=== PATIENT | female | born 1945 | race Caucasian/White ===

== ENCOUNTER 2017-08-15 10:13 | Inpatient (IN) | payer MEDICARE, BC ==
[2017-08-15] MEDS ORDERED: methylPREDNISolone SOD SUCCI 125 MG/2 ML VIAL IV STA (10:18)
[2017-08-15] MEDS ORDERED: IPRATROPIUM-ALBUTEROL 3 ML NEB INHALATION STA (10:18)
[2017-08-15] MEDS ORDERED: SODIUM CHLORIDE 0.9% 1,000 ML IV STA (10:18)
--- NOTE | 2017-08-15 10:20 | ED ---
SOB HPI - General Stated Complaint: JEFF Time Seen by Provider: 08/15/17 10:13 Source: patient, EMS, RN notes reviewed Mode of arrival: EMS - History of Present Illness Initial Comments: This is a 72-year-old female history of COPD who still smokes who states she's been having difficulty breathing and coughing for the past one half weeks. She seems actually may have been gone on longer since coming back from [place] in the middle of July. She complains of no fevers chills or sweats just cough shortness of breath some chest tightness. She has any history of a sternotomy and sternotomy from E. coli infection after bypass surgery. She did present to her doctor's office who sent here by embolus. She did receive a updraft treatments and still short of breath MD Complaint: shortness of breath, cough - Related Data Home Medications Medication Instructions Recorded Confirmed Albuterol Nebulized [Ventolin 2.5 mg INHALATION RT-Q4H PRN 08/15/17 08/15/17 Nebulized] Aspirin EC [Ecotrin Low Dose] 81 mg PO BID 08/15/17 08/15/17 Carvedilol [Coreg] 12.5 mg PO BID 08/15/17 08/15/17 Cholecalciferol (Vitamin D3) 4,000 unit PO DAILY 08/15/17 08/15/17 [Vitamin D3] DULoxetine HCL [Cymbalta] 60 mg PO DAILY 08/15/17 08/15/17 Fluticasone Nasal [place] [Flonase 1 spray EA NOSTRIL DAILY 08/15/17 08/15/17 Nasal [place]] Gabapentin 600 mg PO HS 08/15/17 08/15/17 HYDROcodone/APAP 10-325MG [[place] 1 tab PO Q4HR PRN 08/15/17 08/15/17 10-325] Lisinopril [Prinivil] 10 mg PO DAILY 08/15/17 08/15/17 Multivitamins, Thera [Multivitamin 1 tab PO DAILY 08/15/17 08/15/17 (formulary)] Potassium Chloride [Klor-Con 10] 10 meq PO DAILY 08/15/17 08/15/17 Simvastatin [Zocor] 10 mg PO HS 08/15/17 08/15/17 Torsemide [Demadex] 5 mg PO DAILY 08/15/17 08/15/17 Allergies Allergy/AdvReac Type Severity Reaction Status Date / Time Penicillins Allergy Rash/Hives Verified 08/15/17 11:15 Review of Systems ROS Statement: Those systems with pertinent positive or pertinent negative responses have been documented in the HPI. ROS Other: All systems not noted in ROS Statement are negative. General Exam - General Exam Comments Initial Comments: This is a well-developed well-nourished awake alert oriented 3 female General appearance: alert, anxious, in distress Head exam: Present: atraumatic, normocephalic, normal inspection Eye exam: Present: normal appearance, PERRL, EOMI. Absent: scleral icterus, conjunctival injection, periorbital swelling ENT exam: Present: normal exam, mucous membranes moist Neck exam: Present: normal inspection. Absent: tenderness, meningismus, lymphadenopathy Respiratory exam: Present: wheezes, accessory muscle use, decreased breath sounds. Absent: respiratory distress, rales, rhonchi, stridor Cardiovascular Exam: Present: regular rate, normal rhythm, normal heart sounds. Absent: systolic murmur, diastolic murmur, rubs, gallop, clicks GI/Abdominal exam: Present: soft, normal bowel sounds. Absent: distended, tenderness, guarding, rebound, rigid Extremities exam: Present: normal inspection, full ROM, normal capillary refill. Absent: tenderness, pedal edema, joint swelling, calf tenderness Back exam: Present: normal inspection Neurological exam: Present: alert, oriented X3, CN II-XII intact Psychiatric exam: Present: normal affect, normal mood Skin exam: Present: warm, dry, intact, normal color. Absent: rash Course Vital Signs 08/15/17 08/15/17 08/15/17 10:15 10:40 10:51 Temperature 99.7 F H Pulse Rate 82 74 76 Respiratory 30 H Rate Blood Pressure 123/66 O2 Sat by Pulse 94 L Oximetry 08/15/17 08/15/17 08/15/17 10:58 11:47 12:28 Temperature 98.5 F Pulse Rate 75 75 74 Respiratory 28 H 28 H 28 H Rate Blood Pressure 112/56 117/58 105/56 O2 Sat by Pulse 94 L 95 96 Oximetry 08/15/17 13:15 Temperature Pulse Rate 71 Respiratory 16 Rate Blood Pressure 119/57 O2 Sat by Pulse 94 L Oximetry - Reevaluation(s) Reevaluation #1: 08/15/17 12:55 The patient did get some improvement in her breathing after the nebulizer treatment. Reevaluation #2: 08/15/17 12:55 Laboratories show evidence of elevated BNP the x-ray of the lung shows left sided. Medical Decision Making - Medical Decision Making I did discuss [employer] the patient family members. Patient is breathing somewhat better she does demonstrate evidence of COPD exacerbation evidence of CHF as well as a left lung mass. She will be admitted for inpatient evaluation and treatment - Lab Data Result diagrams: 08/15/17 10:26 08/15/17 10:26 Lab Results 08/15/17 08/15/17 08/15/17 Range/Units 10:26 10:26 10:26 WBC 15.3 H (3.8-10.6) k/uL RBC 3.56 L (3.80-5.40) m/uL Hgb 11.0 L (11.4-16.0) gm/dL Hct 31.6 L (34.0-46.0) % MCV 88.8 (80.0-100.0) fL MCH 30.8 (25.0-35.0) pg MCHC 34.7 (31.0-37.0) g/dL RDW 12.7 (11.5-15.5) % Plt Count 206 (150-450) k/uL Neutrophils % 89 % Lymphocytes % 5 % Monocytes % 4 % Eosinophils % 2 % Basophils % 0 % Neutrophils # 13.6 H (1.3-7.7) k/uL Lymphocytes # 0.7 L (1.0-4.8) k/uL Monocytes # 0.6 (0-1.0) k/uL Eosinophils # 0.3 (0-0.7) k/uL Basophils # 0.0 (0-0.2) k/uL PT (9.0-12.0) sec INR (<1.2) APTT (22.0-30.0) sec D-Dimer (<0.60) mg/L FEU Sodium 135 L (137-145) mmol/L Potassium 4.3 (3.5-5.1) mmol/L Chloride 105 (98-107) mmol/L Carbon Dioxide 18 L (22-30) mmol/L Anion Gap 12 mmol/L BUN 24 H (7-17) mg/dL Creatinine 1.29 H (0.52-1.04) mg/dL Est GFR (CKD-EPI)AfAm 48 (>60 ml/min/1.73 sqM) Est GFR (CKD-EPI)NonAf 42 (>60 ml/min/1.73 sqM) Glucose 114 H (74-99) mg/dL Calcium 7.8 L (8.4-10.2) mg/dL Total Bilirubin 1.2 (0.2-1.3) mg/dL AST 17 (14-36) U/L ALT 27 (9-52) U/L Alkaline Phosphatase 90 (38-126) U/L Total Creatine Kinase 71 (30-135) U/L CK-MB (CK-2) 0.6 (0.0-2.4) ng/mL CK-MB (CK-2) Rel Index 0.8 Troponin I 0.013 (0.000-0.034) ng/mL NT-Pro-B Natriuret Pep pg/mL Total Protein 5.0 L (6.3-8.2) g/dL Albumin 2.7 L (3.5-5.0) g/dL 08/15/17 08/15/17 Range/Units 10:26 10:26 WBC (3.8-10.6) k/uL RBC (3.80-5.40) m/uL Hgb (11.4-16.0) gm/dL Hct (34.0-46.0) % MCV (80.0-100.0) fL MCH (25.0-35.0) pg MCHC (31.0-37.0) g/dL RDW (11.5-15.5) % Plt Count (150-450) k/uL Neutrophils % % Lymphocytes % % Monocytes % % Eosinophils % % Basophils % % Neutrophils # (1.3-7.7) k/uL Lymphocytes # (1.0-4.8) k/uL Monocytes # (0-1.0) k/uL Eosinophils # (0-0.7) k/uL Basophils # (0-0.2) k/uL PT 9.9 (9.0-12.0) sec INR 1.0 (<1.2) APTT 23.7 (22.0-30.0) sec D-Dimer 4.21 H (<0.60) mg/L FEU Sodium (137-145) mmol/L Potassium (3.5-5.1) mmol/L Chloride (98-107) mmol/L Carbon Dioxide (22-30) mmol/L Anion Gap mmol/L BUN (7-17) mg/dL Creatinine (0.52-1.04) mg/dL Est GFR (CKD-EPI)AfAm (>60 ml/min/1.73 sqM) Est GFR (CKD-EPI)NonAf (>60 ml/min/1.73 sqM) Glucose (74-99) mg/dL Calcium (8.4-10.2) mg/dL Total Bilirubin (0.2-1.3) mg/dL AST (14-36) U/L ALT (9-52) U/L Alkaline Phosphatase (38-126) U/L Total Creatine Kinase (30-135) U/L CK-MB (CK-2) (0.0-2.4) ng/mL CK-MB (CK-2) Rel Index Troponin I (0.000-0.034) ng/mL NT-Pro-B Natriuret Pep 4300 pg/mL Total Protein (6.3-8.2) g/dL Albumin (3.5-5.0) g/dL - EKG Data -: EKG Interpreted by Me EKG shows normal: sinus rhythm (Sinus rhythm rate is 72. Interval 178 QRS duration 84 QT since QTC 420/459 nonspecific inferior changes nonspecific ST-T wave configuration) - Radiology Data Radiology results: report reviewed (I did review the imaging and report evidence of a left perihilar mass consistent with neoplasm. Please see the report for complete details), image reviewed Critical Care Time Critical Care Time: Yes Critical Care Time: 39 minutes of critical care time which includes initial monitoring the EMS run and discussed with paramedics history physical labs x-rays several reevaluation the patient. Discussed with the patient family regarding findings discussion with the admitting physician discussion with the consult. Admission orders and documentation of the above Disposition Clinical Impression: Acute exacerbation of chronic obstructive airways disease, Adult respiratory distress syndrome, Congestive heart failure, Lung mass, Renal insufficiency Disposition: ADMITTED IP TO THIS HOSP Condition: Serious Referrals: Byron Benites MD [Primary Care Provider] - 1-2 days
[2017-08-15 10:38] LABS: Basophils % (A) 0 %; Eosinophils # (A) 0.3 k/uL (0-0.7); Eosinophils % (A) 2 %; HCT 31.6 % (34.0-46.0); Lymphocytes # (A) 0.7 k/uL (1.0-4.8); Lymphocytes % (A) 5 %; MCH 30.8 pg (25.0-35.0); MCHC 34.7 g/dL (31.0-37.0); MCV 88.8 fL (80.0-100.0); Mean Platelet Volume 8.5; Monocytes # (A) 0.6 k/uL (0-1.0); Monocytes % (A) 4 %; Neutrophils # (A) 13.6 k/uL (1.3-7.7); Neutrophils % (A) 89 %; Platelet Count 206 k/uL (150-450); RBC 3.56 m/uL (3.80-5.40); RDW 12.7 % (11.5-15.5); WBC 15.3 k/uL (3.8-10.6)
--- NOTE | 2017-08-15 10:46 | XR ---
EXAMINATION TYPE: XR chest 2V DATE OF EXAM: 08/15/2017 COMPARISON: NONE HISTORY: History of COPD, CABG, CVA, and NV presents with shortness of breath and weakness. TECHNIQUE: Frontal and lateral views of the chest are obtained. FINDINGS: Patient is rotated to left making evaluation slightly suboptimal. There is completely opac ified left hemithorax. There are surgical clips near level of left aortic knob. There is background c hronic emphysematous change suspected in the right lung.. The left heart border is silhouetted due t o left lung opacification. The osseous structures are intact. Cholecystectomy clips are noted. IMPRESSION: Completely opacified left hemithorax may reflect product of prior surgery or total pneum onectomy, correlate clinically. Underlying infiltrates need to be considered if there is no such hist ory. No definitive left-sided volume loss. Comparison with old outside chest x-ray would be adalida l.
[2017-08-15] MEDS ORDERED: LORazepam 2 MG/ML INJ IV STA (10:55)
[2017-08-15 10:58] LABS: Partial Thromboplastin Time 23.7 sec (22.0-30.0); Prothrombin Time 9.9 sec (9.0-12.0)
[2017-08-15 10:59] LABS: D-Dimer 4.21 mg/L FEU (<0.60)
[2017-08-15 11:00] LABS: Albumin 2.7 g/dL (3.5-5.0); Calcium 7.8 mg/dL (8.4-10.2); Potassium 4.3 mmol/L (3.5-5.1); Total Bilirubin 1.2 mg/dL (0.2-1.3)
[2017-08-15] MEDS ORDERED: SODIUM CHLORIDE 0.9% 500 ML IV STA (11:05)
[2017-08-15 11:18] LABS: Creatine Kinase MB 0.6 ng/mL (0.0-2.4); Troponin I 0.013 ng/mL (0.000-0.034)
--- NOTE | 2017-08-15 12:10 | CT ---
EXAMINATION TYPE: CT angio chest DATE OF EXAM: 08/15/2017 COMPARISON: Same day chest x-ray HISTORY: Chest pain, cough and shortness of breath. CT DLP: 497 mGycm. Automated Exposure Control for Dose Reduction was Utilized. CONTRAST: CTA scan of the thorax is performed with IV Contrast, patient injected with 75 mL of Isovue 370, pulm onary embolism protocol. MIP Images are created on CT scanner and reviewed. FINDINGS: LUNGS: There is background moderate to severe underlying emphysematous change there is complete opaci fication or suspected lobar atelectasis of the lingula and left upper lobe. There is abrupt narrowing of left upper lobe bronchus and occlusion of the lingular bronchus axial image 58 noted. There is sm all to tiny left pleural effusion with associated compressive atelectasis. There is dependent atelectasis in the right lung base. There is subcentimeter nodularity axial image 80 measuring up to 5 x 3 mm. MEDIASTINUM: There is satisfactory enhancement of the pulmonary artery and its branches, there is no CT evidence for pulmonary embolism. There are abnormal thoracic lymph nodes. There is subcarinal lym ph node measuring 3.6 x 2.2 cm axial image 59. There are abnormal prevascular and AP window lymph nod es, for reference AP window lymph node measures 2.4 x 2.3 cm axial image 46. No cardiomegaly or peric ardial effusion is seen. Coronary artery calcification is seen which is noted marker for coronary art carlos disease. There is fairly moderate to severe mixed plaque in the descending aorta. OTHER: Benign dystrophic calcifications in bilateral breasts are present. There is multilevel spurrin g in the spine present with multilevel disc space narrowing. Cholecystectomy clips are partially imag ed. There is suspicious thickening of left adrenal gland with anterior limb mass measuring 2.6 x 1.4 cm on axial image 116 noted. IMPRESSION: 1. No CT evidence for acute pulmonary embolism. 2. Background moderate emphysematous change with primary lung malignancy felt present. There is likel y left hilar mass causing left upper lobe and lingular lobar atelectasis. There is abnormal thoracic adenopathy noted. 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 Further investigation with bronch oscopy for sampling or confirmation is advised.
[2017-08-15] MEDS ORDERED: FUROSEMIDE 10 MG/ML 4 ML VIAL IV STA (12:54)
[2017-08-15] MEDS ORDERED: NITROGLYCERIN OINT 1 INCH/GM PACKET TOPICAL STA (12:55)
[2017-08-15] MEDS ORDERED: HYDROcodone/APAP 10-325MG 1 EACH TAB PO PRN (13:32)
[2017-08-15] MEDS: IPRATROPIUM-ALBUTEROL 3 ML NEB INHALATION SCH ×2 (15:50→19:48)
[2017-08-15 16:31] LABS: Glucose,Whole Blood 316 mg/dL (75-99)
[2017-08-15] MEDS ORDERED: INSULIN ASPART 100 UNIT/ML 1 ML 10 ML VIAL SQ ONE (17:24)
[2017-08-15] MEDS: INSULIN ASPART 100 UNIT/ML 1 ML 10 ML VIAL SQ SCH ×2 (18:03→21:12)
[2017-08-15] MEDS: methylPREDNISolone SOD SUCCI 125 MG/2 ML VIAL IV SCH ×2 (18:03→22:27)
[2017-08-15] MEDS: SODIUM CHLORIDE 0.9% 1,000 ML IV SCH (18:04)
[2017-08-15] MEDS: CARVEDILOL 12.5 MG TAB PO SCH (18:05)
[2017-08-15] MEDS: FUROSEMIDE 10 MG/ML 4 ML VIAL IV SCH ×2 (18:05→22:27)
[2017-08-15] MEDS: ATORVASTATIN 10 MG TAB PO SCH (20:38)
[2017-08-15] MEDS: ASPIRIN 81 MG PO SCH (20:38)
[2017-08-15] MEDS: GABAPENTIN 300 MG CAP PO SCH (20:38)
[2017-08-15 21:01] LABS: Glucose,Whole Blood 233 mg/dL (75-99)
[2017-08-16] MEDS: IPRATROPIUM-ALBUTEROL 3 ML NEB INHALATION SCH ×6 (00:12→21:00)
--- NOTE | 2017-08-16 00:21 | HP ---
HISTORY AND PHYSICAL DATE OF ADMISSION: 08/15/2017 PRESENTING COMPLAINT: Short of breath, cough. HISTORY OF PRESENTING COMPLAINT: This is a pleasant 72-year-old patient of Dr. Byron Benites. The patient has rather extensive medical history. 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 The patient about 2 weeks ago returned from [place] and has been increasingly more short of breath, cough with yellow-green sputum production. Patient has had low-grade fever, bouts of perspiration, decreased appetite, tired, run down and wheezing. The patient admitted for the same. The patient has slight edema. REVIEW OF SYSTEMS: CONSTITUTIONAL: Tired. HEENT: As above. RESPIRATORY: As above. CARDIOVASCULAR: As above. GASTROINTESTINAL: None. GENITOURINARY: None. MUSCULOSKELETAL: Some pain in the joints. DERMATOLOGICAL: None. HEMATOLOGICAL: None. LYMPHATICS: None. PSYCHIATRY: None. NEUROLOGICAL: None. PAST MEDICAL HISTORY: Coronary artery disease, COPD, hyperlipidemia, hypertension, stroke with left eye blindness, home oxygen 1.5 L at night, some edema, chronic low back pain, DJD, herniated disc, goes to a pain clinic due to coronary bypass. PAST SURGICAL HISTORY: Appendectomy, back surgery, cholecystectomy, 2009 coronary bypass at [facility], sternotomy with infection, seven low back surgeries. SOCIAL HISTORY: . The patient has averaged about a pack a day for over 50 years and now down to half a pack a day. No alcohol. FAMILY HISTORY: Father of lymphoma at age 57. HOME MEDICATIONS: 1. Demadex 5 mg p.o. daily. 2. Zocor 10 mg p.o. q.h.s. 3. Potassium 10 mEq p.o. daily. 4. Luxor 10 one tab q.4h p.r.n. 5. Vitamin D3 4000 units p.o. daily. 6. Multivitamin 1 tablet p.o. daily. 7. Prinivil 10 mg p.o. daily. 8. Gabapentin 600 mg q.h.s. 9. Flonase 1 spray each nostril daily. 10.Cymbalta 60 mg p.o. daily. 11.Coreg 12.5 p.o. b.i.d. 12.Aspirin 81 mg p.o. b.i.d. 13.Albuterol 2.5 nebulizer q.4 p.r.n. ALLERGIES: PENICILLIN. PHYSICAL EXAMINATION: On examination, temperature 99.7, pulse 82, respiration 30, blood pressure 123/66, pulse ox 94% on room air. GENERAL APPEARANCE: Out of bed. Tired, short of breath. EYES: Pupils equal. Conjunctivae normal, HEENT: External appears of ears and nose normal. Oral cavity normal. NECK: JVD unable to assess. Mass not palpable. Respiratory effort increased. LUNGS: Diminished breath sounds, prolonged expiration, wheezing, some crackles. CARDIOVASCULAR: First and seconds sounds, no edema. ABDOMEN: Soft, nontender. Liver and spleen not palpable. LYMPHATIC: No lymph node palpable in the neck and axillae. PSYCHIATRY: Alert and oriented x3. Mood and affect slightly anxious-appearing. NEUROLOGICAL: Pupils equal. Cranial nerves grossly intact. Power and sensation grossly intact. INVESTIGATIONS: White count 15.3, hemoglobin 11, potassium 4.3, BUN 24, creatinine 1.29. ProBNP 4300. EKG normal sinus rhythm, nonspecific finding in the inferior leads. Chest CTA shows possible collapse left upper lobe. Chest x-ray shows on the left side. ASSESSMENT: 1. This is a patient who presented with increasing shortness of breath for 2 weeks with cough, yellow-green sputum, near collapse of the left side of upper lobe, strongly suspect postobstructive pneumonia with possible collapse of the left upper lobe. The patient will probably need a bronchoscopy. The patient may even have a mucus plug. 2. Acute chronic obstructive pulmonary disease exacerbation in a current smoker. 3. Chronic nicotine dependence. The patient is a cigarette smoker. 4. Coronary artery disease, prior history of coronary bypass. 5. Essential hypertension. 6. Hyperlipidemia. 7. Stroke with left eye blindness. 8. Chronic hypoxic respiratory failure on 1.5 L at home. 9. Chronic low back pain from herniated disc. 10.The patient has no sternum from prior sternotomy. PLAN: Patient is put on nebulized bronchodilators and steroids. We will add Mucinex and a sputum for Gram stain and culture. There is a question of patient also having CHF. We will get a cardiac evaluation for the same. Difficult to assess. We will get a 2-D echocardiogram. Other home medications are resumed. We will also add ceftriaxone. Consultation to both Pulmonary and Cardiology was made. KITTY / ANGY: [id number] /
[2017-08-16] MEDS: methylPREDNISolone SOD SUCCI 125 MG/2 ML VIAL IV SCH ×4 (05:42→22:23)
[2017-08-16 06:07] LABS: Glucose,Whole Blood 171 mg/dL (75-99)
[2017-08-16] MEDS: INSULIN ASPART 100 UNIT/ML 1 ML 10 ML VIAL SQ SCH ×4 (06:12→21:25)
[2017-08-16] MEDS: CARVEDILOL 12.5 MG TAB PO SCH ×2 (06:12→17:04)
[2017-08-16 06:49] LABS: Basophils % (A) 0 %; Eosinophils % (A) 0 %; HCT 32.5 % (34.0-46.0); HGB 11.1 gm/dL (11.4-16.0); Lymphocytes # (A) 0.6 k/uL (1.0-4.8); Lymphocytes % (A) 5 %; MCH 30.4 pg (25.0-35.0); MCHC 34.3 g/dL (31.0-37.0); MCV 88.8 fL (80.0-100.0); Mean Platelet Volume 8.4; Monocytes # (A) 0.3 k/uL (0-1.0); Monocytes % (A) 2 %; Neutrophils # (A) 11.8 k/uL (1.3-7.7); Neutrophils % (A) 93 %; Platelet Count 215 k/uL (150-450); RBC 3.66 m/uL (3.80-5.40); RDW 13.2 % (11.5-15.5); WBC 12.8 k/uL (3.8-10.6)
[2017-08-16 07:00] LABS: Calcium 8.2 mg/dL (8.4-10.2); Potassium 3.7 mmol/L (3.5-5.1)
[2017-08-16] MEDS: FUROSEMIDE 10 MG/ML 4 ML VIAL IV SCH ×3 (08:43→22:23)
[2017-08-16] MEDS: ASPIRIN 81 MG PO SCH (08:45)
[2017-08-16] MEDS: FLUTICASONE 50MCG/SPRAY NASAL 16GM EA NOSTRIL SCH (08:46)
[2017-08-16] MEDS: CHOLECALCIFEROL 1,000 UNIT TAB PO SCH (08:46)
[2017-08-16] MEDS: guaiFENesin 600 MG TABLET.ER PO SCH ×2 (08:46→21:25)
[2017-08-16] MEDS: LISINOPRIL 10 MG TAB PO SCH (08:53)
[2017-08-16] MEDS: DULoxetine HCL 60 MG CAPSULE.DR PO SCH (08:53)
[2017-08-16] MEDS: POTASSIUM CHLORIDE ER 10 MEQ TAB.ER.PRT PO SCH (08:53)
[2017-08-16] MEDS ORDERED: NON-FORMULARY DRUG (Torsemide [Demadex] 5 MG) PO SCH (09:00)
[2017-08-16] MEDS ORDERED: ENOXAPARIN 40 MG/0.4 ML SYRINGE SQ SCH (09:00)
--- NOTE | 2017-08-16 10:05 | ECHOF ---
Referral Reason:assess LV function MEASUREMENTS -------- HEIGHT: 154.9 cm WEIGHT: 65.8 kg BP: 100/50 IVSd: 1.4 cm (0.6 - 1.1) LVIDd: 3.8 cm (3.9 - 5.3) LVPWd: 1.5 cm (0.6 - 1.1) IVSs: 1.9 cm LVIDs: 1.7 cm LVPWs: 2.0 cm LAESV Index (A-L): 28.77 ml/m Ao Diam: 3.0 cm (2.0 - 3.7) AV Cusp: 1.6 cm (1.5 - 2.6) LA Diam: 4.2 cm (2.7 - 3.8) MV EXCURSION: 14.924 mm (> 18.000) MV EF SLOPE: 46 mm/s (70 - 150) EPSS: 1.0 cm MV E Jon: 1.04 m/s MV DecT: 172 ms MV A Jon: 1.01 m/s MV E/A Ratio: 1.03 RAP: 5.00 mmHg RVSP: 34.04 mmHg FINDINGS -------- Sinus rhythm. This was a technically good study. The left ventricular size is normal. There is moderate concentric left ventricular hypertrophy. O verall left ventricular systolic function is normal with, an EF between 55 - 60 %. The right ventricle is normal in size and function. The left atrium is mildly dilated. The right atrium is normal in size. Aortic valve is trileaflet and is mildly thickened. The mitral valve leaflets are mildly thickened. Mild mitral regurgitation is present. Cannot excl ude mitral valve prolapse. Mild tricuspid regurgitation present. The right ventricular systolic pressure, as measured by Doppl er, is 34.04mmHg. Pulmonic valve appears structurally normal. The aortic root, ascending aorta and aortic arch are normal. The pericardium is normal. CONCLUSIONS -------- 1. Sinus rhythm. 2. This was a technically good study. 3. The left ventricular size is normal. 4. There is moderate concentric left ventricular hypertrophy. 5. Overall left ventricular systolic function is normal with, an EF between 55 - 60 %. 6. The right ventricle is normal in size and function. 7. The left atrium is mildly dilated. 8. The right atrium is normal in size. 9. Aortic valve is trileaflet and is mildly thickened. 10. The mitral valve leaflets are mildly thickened. 11. Mild mitral regurgitation is present. 12. Cannot exclude mitral valve prolapse. 13. Mild tricuspid regurgitation present. 14. The right ventricular systolic pressure, as measured by Doppler, is 34.04mmHg. 15. Pulmonic valve appears structurally normal. 16. The aortic root, ascending aorta and aortic arch are normal. 17. The pericardium is normal. COMMERCIAL REPORTER: Altagracia Contreras RDCS
--- NOTE | 2017-08-16 11:34 | CONS ---
CONSULTATION This is a 72-year-old female with a history of COPD who has been complaining of cough and difficulty breathing and wheezing. This has been going on since the last 3 weeks. She denies any chest discomfort. Her only complaint is shortness of breath. REVIEW OF SYSTEMS: No fever, chills, or rigors. She does have a cough with some expectoration and shortness of breath. No nausea, vomiting, or diarrhea. No hematuria or dysuria. No strokes or seizures. MEDICATIONS: Medications at home include albuterol, aspirin, carvedilol, vitamin D, Cymbalta, Flonase, hydrocodone, lisinopril, multivitamin, potassium, simvastatin and torsemide. ALLERGIES: Allergy to PENICILLIN. PHYSICAL EXAMINATION: On examination, she is sitting in bed. She appears short of breath, but alert and oriented. Breath sounds are reduced bilaterally with bilateral rhonchi. Abdomen is soft. Extremities are warm. No edema. LABS: Her labs are reviewed. White count is elevated 15,000, hemoglobin is 11. Electrolytes are normal. BUN is 32, creatinine is 1.35. NT proBNP is 4300. 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 IMPRESSION: 1. Chronic obstructive pulmonary disease exacerbation. 2. Lung mass. 3. Adrenal mass. 4. Hypertension: SUGGEST: Workup lung disease. Continue cardiac medications at this time. From a cardiac standpoint, I would offer 2D echo. No further interventions planned at this time. MMODL / IJN: [id number] /
--- NOTE | 2017-08-16 11:49 | P.CRDCN ---
History of Present Illness Consult date: 08/16/17 Requesting physician: Marcial Cárdenas Consult reason: shortness of breath Chief complaint: Shortness of breath History of present illness: This is a 72-year-old female with history of hyperlipidemia, hypertension, COPD with home O2 use, coronary artery disease with prior bypass surgery, who presented to the hospital with symptoms of shortness of breath, cough with yellowish-green as sputum production and low-grade temperature. EKG on arrival here showed a normal sinus rhythm with nonspecific ST-T wave changes in the lateral leads. Chest x-ray showed completely opacified left hemithorax which may reflect product of prior surgery or total pneumonectomy. Underlying infiltrates need to be considered if there is no such history. D-dimer came back to be elevated and for this reason patient underwent a CAT scan of the chest. CT did not reveal any evidence for acute pulmonary embolism. Background moderate emphysema changes with primary lung malignancy felt to be present. There is a left hilar mass causing left upper lobe and lingular lobar atelectasis. There is abnormal thoracic adenopathy noted. 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 Temperature on arrival 99.7, blood pressure 122/60, heart rate in the 80s, 94% on room air. White blood cell count on admission 15.3, 12.8 this morning. Hemoglobin 11.0, left 0.1 this morning. Platelet count 2:15. D-dimer 4.2. Sodium 142, potassium 3.7, BUN 32 , creatinine 1.3. Troponin 0.013, BNP level 4300. At the time of our examination this morning, patient is quite short of breath. Past Medical History Past Medical History: Coronary Artery Disease (CAD), COPD, CVA/TIA, Hyperlipidemia, Hypertension, Myocardial Infarction ([place]) Additional Past Medical History / Comment(s): CVA with L eye blindness, home O2 1.5L/NC at HS, bilateral pedal edema at times, chronic low back pain, DDD/ bulging disc-goes to pain clinic, sternotomy d/t post op CABG infection. Last Myocardial Infarction Date:: 2008 History of Any Multi-Drug Resistant Organisms: None Reported Past Surgical History: Appendectomy, Back Surgery, Cholecystectomy, Coronary Bypass/CABG, Hysterectomy Additional Past Surgical History / Comment(s): 2009 CABG at [facility]-does not know how many vessels, Sternotomy, 7 low back surgeries, colonoscopy. Past Anesthesia/Blood Transfusion Reactions: No Reported Reaction Additional Past Anesthesia/Blood Transfusion Reaction / Comment(s): Pt has received blood in the past without reaction. Smoking Status: Current every day smoker - Past Family History Father Family Medical History: Cancer Additional Family Medical History / Comment(s): Father of lymphoma at the age of 57yrs. Mother Family Medical History: Coronary Artery Disease (CAD) Additional Family Medical History / Comment(s): Mother lived to be in her 80s. Medications and Allergies Home Medications Medication Instructions Recorded Confirmed Type Albuterol Nebulized [Ventolin 2.5 mg INHALATION RT-Q4H PRN 08/15/17 08/15/17 History Nebulized] Aspirin EC [Ecotrin Low Dose] 81 mg PO BID 08/15/17 08/15/17 History Carvedilol [Coreg] 12.5 mg PO BID 08/15/17 08/15/17 History Cholecalciferol (Vitamin D3) 4,000 unit PO DAILY 08/15/17 08/15/17 History [Vitamin D3] DULoxetine HCL [Cymbalta] 60 mg PO DAILY 08/15/17 08/15/17 History Fluticasone Nasal [place] [Flonase 1 spray EA NOSTRIL DAILY 08/15/17 08/15/17 History Nasal [place]] Gabapentin 600 mg PO HS 08/15/17 08/15/17 History HYDROcodone/APAP 10-325MG [[place] 1 tab PO Q4HR PRN 08/15/17 08/15/17 History 10-325] Lisinopril [Prinivil] 10 mg PO DAILY 08/15/17 08/15/17 History Multivitamins, Thera [Multivitamin 1 tab PO DAILY 08/15/17 08/15/17 History (formulary)] Potassium Chloride [Klor-Con 10] 10 meq PO DAILY 08/15/17 08/15/17 History Simvastatin [Zocor] 10 mg PO HS 08/15/17 08/15/17 History Torsemide [Demadex] 5 mg PO DAILY 08/15/17 08/15/17 History Allergies Allergy/AdvReac Type Severity Reaction Status Date / Time Penicillins Allergy Rash/Hives Verified 08/15/17 11:15 Physical Exam Vitals: Vital Signs Temp Pulse Pulse Pulse Resp BP BP 06/12/18 08:25 76 08/16/17 08:14 80 08/16/17 04:50 76 08/16/17 04:24 72 08/16/17 04:00 97.6 F 65 16 08/16/17 00:26 74 08/16/17 00:12 84 08/16/17 00:00 97.2 F L 77 18 08/15/17 20:04 72 08/15/17 20:00 97.2 F L 79 18 08/15/17 19:49 72 08/15/17 16:02 78 08/15/17 15:54 78 08/15/17 15:00 98 F 77 22 98/50 08/15/17 13:57 98 F 78 26 H 119/55 08/15/17 13:15 71 16 119/57 08/15/17 12:28 98.5 F 74 28 H 105/56 08/15/17 11:47 75 28 H 117/58 BP Pulse Ox 08/16/17 08:25 08/16/17 08:14 93 L 08/16/17 04:50 08/16/17 04:24 08/16/17 04:00 100/50 99 08/16/17 00:26 08/16/17 00:12 08/16/17 00:00 119/54 94 L 08/15/17 20:04 08/15/17 20:00 117/56 95 08/15/17 19:49 08/15/17 16:02 08/15/17 15:54 08/15/17 15:00 98/54 08/15/17 13:57 97 08/15/17 13:15 94 L 08/15/17 12:28 96 08/15/17 11:47 95 Intake and Output 08/15/17 08/16/17 08/16/17 22:59 06:59 14:59 Intake Total 400 160 222 Output Total 400 400 Balance 0 -240 222 Intake: IV 160 160 Sodium Chloride 0.9% 1, 160 160 000 ml @ 20 mls/hr IV . Q24H [facility] Rx#:[id number] Oral 240 222 Output: Urine 400 400 Other: Voiding Method Toilet # Voids 1 2 Weight 66.2 kg PHYSICAL EXAMINATION: GENERAL: 72-year-old female. Quite short of breath at the time of our examination. HEENT: Head is atraumatic, normocephalic. Pupils equal, round. Sclera anicteric. Conjunctiva are clear. Mucous membranes of the mouth are moist. Neck is supple. There is no elevated jugular venous pressure.] bruit is heard. HEART EXAMINATION: Heart S1, S2 normal. No murmur or gallop heard. CHEST EXAMINATION: Lungs reveal decreased air exchange throughout with diminished air entry bilaterally. Scattered coarse rhonchi throughout. ABDOMEN: Soft, nontender. Bowel sounds are heard. No organomegaly noted. EXTREMITIES: 2+ peripheral pulses with no evidence of peripheral edema and no calf tenderness noted. NEUROLOGIC patient is awake, alert and oriented -3. . Results 08/16/17 06:14 08/16/17 06:14 CBC 08/16/17 Range/Units 06:14 WBC 12.8 H (3.8-10.6) k/uL RBC 3.66 L (3.80-5.40) m/uL Hgb 11.1 L (11.4-16.0) gm/dL Hct 32.5 L (34.0-46.0) % Plt Count 215 (150-450) k/uL Comprehensive Metabolic Panel 08/16/17 Range/Units 06:14 Sodium 142 (137-145) mmol/L Potassium 3.7 (3.5-5.1) mmol/L Chloride 106 (98-107) mmol/L Carbon Dioxide 20 L (22-30) mmol/L BUN 32 H (7-17) mg/dL Creatinine 1.35 H (0.52-1.04) mg/dL Glucose 157 H (74-99) mg/dL Calcium 8.2 L (8.4-10.2) mg/dL Current Medications Generic Name Dose Route Start Last Admin Trade Name Freq PRN Reason Stop Dose Admin Hydrocodone Bitart/Acetaminophen 1 each 08/15/17 13:32 [place] 10 PO Q4HR PRN Pain Albuterol/Ipratropium 3 ml 08/15/17 16:00 08/16/17 08:12 Duoneb 0.5 Mg-3 Mg/3 Ml Soln INHALATION 3 ml RT-Q4H [facility] Administration Aspirin 81 mg 08/15/17 21:00 08/16/17 08:45 Aspirin PO 81 mg BID [facility] Administration Atorvastatin Calcium 10 mg 08/15/17 21:00 08/15/17 20:38 Lipitor PO 10 mg HS [facility] Administration Carvedilol 12.5 mg 08/15/17 17:30 08/16/17 06:12 Coreg PO 12.5 mg AC-BID [facility] Administration Cholecalciferol 4,000 unit 08/16/17 09:00 08/16/17 08:46 Vitamin D3 PO 4,000 unit DAILY [facility] Administration Duloxetine HCl 60 mg 08/16/17 09:00 08/16/17 08:53 Cymbalta PO 60 mg DAILY [facility] Administration Enoxaparin Sodium 30 mg 08/17/17 09:00 Lovenox SQ DAILY [facility] Fluticasone Propionate 1 spray 08/16/17 09:00 08/16/17 08:46 Flonase Nasal [place] EA NOSTRIL Not Given DAILY [facility] Furosemide 40 mg 08/15/17 16:00 08/16/17 08:43 Lasix IV 40 mg Q8HR [facility] Administration Gabapentin 600 mg 08/15/17 21:00 08/15/17 20:38 Neurontin PO 300 mg HS [facility] Administration Guaifenesin 1,200 mg 08/16/17 09:00 08/16/17 08:46 Mucinex PO 1,200 mg Q12HR [facility] Administration Sodium Chloride 1,000 mls @ 20 mls/hr 08/15/17 13:30 08/15/17 18:04 Saline 0.9% IV 20 mls/hr .Q24H [facility] Administration Insulin Aspart 0 unit 08/15/17 17:30 08/16/17 06:12 Novolog SQ 4 unit ACHS [facility] Administration Protocol Lisinopril 10 mg 08/16/17 09:00 08/16/17 08:53 Zestril PO 10 mg DAILY [facility] Administration Methylprednisolone Sodium Succinate 60 mg 08/15/17 18:00 08/16/17 05:42 Solu-Medrol IV 60 mg Q6HR [facility] Administration Multivitamins 1 each 08/16/17 12:00 Theragran PO DAILY@1200 [facility] Potassium Chloride 10 meq 08/16/17 09:00 08/16/17 08:53 [place] 10 PO 10 meq DAILY [facility] Administration Intake and Output 08/15/17 08/16/17 08/16/17 22:59 06:59 14:59 Intake Total 400 160 222 Output Total 400 400 Balance 0 -240 222 Intake: IV 160 160 Sodium Chloride 0.9% 1, 160 160 000 ml @ 20 mls/hr IV . Q24H [facility] Rx#:[id number] Oral 240 222 Output: Urine 400 400 Other: Voiding Method Toilet # Voids 1 2 Weight 66.2 kg 08/16/17 06:14 08/16/17 06:14 EKG Interpretations (text) EKG shows normal sinus rhythm with T-wave inversion in the lateral leads. Assessment and Plan Plan: Assessment and plan #1 symptoms of progressively worsening shortness of breath, exacerbation of COPD , possible tracheobronchitis. No evidence of PE on CAT scan. There is evidence of moderate emphysema change with a primary lung malignancy felt to be present. There is a left hilar mass causing left upper lobe and lingular lobar atelectasis. Abnormal thoracic adenopathy noted. Probable left adrenal metastatic lesion also noted. #2 history of COPD #3 nicotine dependence #4 coronary artery disease with prior bypass surgery, patient developed subsequent E. coli infection requiring sternotomy. # 5 hypertension #6 hyperlipidemia Plan We will obtain an echocardiogram with Doppler study. We will also give the patient one time dose of IV Lasix. Further recommendations to follow. DNP note has been reviewed, I agree with a documented findings and plan of care. Patient was seen and examined.
[2017-08-16 11:54] LABS: Glucose,Whole Blood 201 mg/dL (75-99)
--- NOTE | 2017-08-16 12:34 | P.CNPUL ---
History of Present Illness Consult date: 08/16/17 Reason for consult: dyspnea, cough, COPD, hypoxemia, pneumonia, lung mass, abnormal CXR/CT Chief complaint: Shortness of breath, COPD exacerbation History of present illness: Pulmonary consult dated 08/16/2017 72-year-old female who has a history of underlying COPD. Still smokes, comes in with complaints of increasing shortness of breath and coughing for the last couple of weeks. The patient has apparently been down in [place]. I'm not seen the patient for 8-10 years. I'm not sure why she fell out of my practice. She apparently is not having any fever or chills. She does cough. Produces occasional phlegm. Also some discomfort in the left chest area. She's had a previous history of a sternal wound infection caused by E. coli after bypass surgery. Chest x-ray and computed tomography scan are ominous-appearing the patient. Show a mass in the left mainstem. I suspect she may have bronchogenic carcinoma. The best hope would be that this would represent a mucous plug although I doubt that the to be the case. She has a history of hyperlipidemia hypertension COPD previous bypass grafting previous sternal wound infection and ongoing tobacco use with nicotine addiction. The patient is put on the bronchoscopy scheduled for . Review of Systems A 12 point review of system is positive for shortness of breath cough chest congestion and difficulty coughing up phlegm. This is been going on for some time. Past Medical History Past Medical History: Coronary Artery Disease (CAD), COPD, CVA/TIA, Hyperlipidemia, Hypertension, Myocardial Infarction ([place]) Additional Past Medical History / Comment(s): CVA with L eye blindness, home O2 1.5L/NC at , bilateral pedal edema at times, chronic low back pain, DDD/ bulging disc-goes to pain clinic, sternotomy d/t post op CABG infection. Last Myocardial Infarction Date:: 2008 History of Any Multi-Drug Resistant Organisms: None Reported Past Surgical History: Appendectomy, Back Surgery, Cholecystectomy, Coronary Bypass/CABG, Hysterectomy Additional Past Surgical History / Comment(s): 2008 CABG at [facility]-does not know how many vessels, Sternotomy, 7 low back surgeries, colonoscopy. Past Anesthesia/Blood Transfusion Reactions: No Reported Reaction Additional Past Anesthesia/Blood Transfusion Reaction / Comment(s): Pt has received blood in the past without reaction. Smoking Status: Current every day smoker - Past Family History Father Family Medical History: Cancer Additional Family Medical History / Comment(s): Father of lymphoma at the age of 57yrs. Mother Family Medical History: Coronary Artery Disease (CAD) Additional Family Medical History / Comment(s): Mother lived to be in her 80s. Medications and Allergies Home Medications Medication Instructions Recorded Confirmed Type Albuterol Nebulized [Ventolin 2.5 mg INHALATION RT-Q4H PRN 08/15/17 08/15/17 History Nebulized] Aspirin EC [Ecotrin Low Dose] 81 mg PO BID 08/15/17 08/15/17 History Carvedilol [Coreg] 12.5 mg PO BID 08/15/17 08/15/17 History Cholecalciferol (Vitamin D3) 4,000 unit PO DAILY 08/15/17 08/15/17 History [Vitamin D3] DULoxetine HCL [Cymbalta] 60 mg PO DAILY 08/15/17 08/15/17 History Fluticasone Nasal [place] [Flonase 1 spray EA NOSTRIL DAILY 08/15/17 08/15/17 History Nasal [place]] Gabapentin 600 mg PO HS 08/15/17 08/15/17 History HYDROcodone/APAP 10-325MG [[place] 1 tab PO Q4HR PRN 08/15/17 08/15/17 History 10-325] Lisinopril [Prinivil] 10 mg PO DAILY 08/15/17 08/15/17 History Multivitamins, Thera [Multivitamin 1 tab PO DAILY 08/15/17 08/15/17 History (formulary)] Potassium Chloride [Klor-Con 10] 10 meq PO DAILY 08/15/17 08/15/17 History Simvastatin [Zocor] 10 mg PO HS 08/15/17 08/15/17 History Torsemide [Demadex] 5 mg PO DAILY 08/15/17 08/15/17 History Allergies Allergy/AdvReac Type Severity Reaction Status Date / Time Penicillins Allergy Rash/Hives Verified 08/15/17 11:15 Physical Exam Osteopathic Statement: *. No significant issues noted on an osteopathic structural exam other than those noted in the History and Physical/Consult. Vitals: Vital Signs Temp Pulse Pulse Pulse Resp BP BP 08/16/17 08:25 76 08/16/17 08:14 80 08/16/17 04:50 76 08/16/17 04:24 72 08/16/17 04:00 97.6 F 65 16 08/16/17 00:26 74 08/16/17 00:12 84 08/16/17 00:00 97.2 F L 77 18 08/15/17 20:04 72 08/15/17 20:00 97.2 F L 79 18 08/15/17 19:49 72 08/15/17 16:02 78 08/15/17 15:54 78 08/15/17 15:00 98 F 77 22 98/50 08/15/17 13:57 98 F 78 26 H 119/55 08/15/17 13:15 71 16 119/57 08/15/17 12:28 98.5 F 74 28 H 105/56 BP Pulse Ox 08/16/17 08:25 08/16/17 08:14 93 L 08/16/17 04:50 08/16/17 04:24 08/16/17 04:00 100/50 99 08/16/17 00:26 08/16/17 00:12 08/16/17 00:00 119/54 94 L 08/15/17 20:04 08/15/17 20:00 117/56 95 08/15/17 19:49 08/15/17 16:02 08/15/17 15:54 08/15/17 15:00 98/54 08/15/17 13:57 97 08/15/17 13:15 94 L 08/15/17 12:28 96 Intake and Output 08/15/17 08/16/17 08/16/17 22:59 06:59 14:59 Intake Total 400 160 222 Output Total 400 400 Balance 0 -240 222 Intake: IV 160 160 Sodium Chloride 0.9% 1, 160 160 000 ml @ 20 mls/hr IV . Q24H [facility] Rx#:[id number] Oral 240 222 Output: Urine 400 400 Other: Voiding Method Toilet # Voids 1 2 Weight 66.2 kg No acute distress, oriented 3. HEENT examination is grossly unremarkable. Mucous membranes are moist. No oral lesions. Neck supple. Full range of motion. No adenopathy thyromegaly or neck vein distention. Cardiovascular examination reveals regular rhythm rate. S1-S2 normal. No S3 or S4. No discernible murmur noted. Lungs reveal diminished breath sounds on the left. A few scattered rhonchi. Some mild expiratory wheezes. There is prolongation. Abdomen soft bowel sounds are heard. No masses or tenderness. Extremities are intact. No cyanosis clubbing or edema. Skin is without rash or lesion. Neurologic examination is brief but nonfocal. Results - Laboratory Findings CBC and BMP: 08/16/17 06:14 08/16/17 06:14 PT/INR, D-dimer PT 9.9 sec (9.0-12.0) 08/15/17 10:26 INR 1.0 (<1.2) 08/15/17 10:26 D-Dimer 4.21 mg/L FEU (<0.60) H 08/15/17 10:26 Abnormal lab findings: Abnormal Labs 08/15/17 08/15/17 08/15/17 10:26 10:26 10:26 WBC 15.3 H RBC 3.56 L Hgb 11.0 L Hct 31.6 L Neutrophils # 13.6 H Lymphocytes # 0.7 L D-Dimer 4.21 H Sodium 135 L Carbon Dioxide 18 L BUN 24 H Creatinine 1.29 H Glucose 114 H POC Glucose (mg/dL) Calcium 7.8 L Total Protein 5.0 L Albumin 2.7 L 08/15/17 08/15/17 08/16/17 16:22 21:00 06:06 WBC RBC Hgb Hct Neutrophils # Lymphocytes # D-Dimer Sodium Carbon Dioxide BUN Creatinine Glucose POC Glucose (mg/dL) 316 H 233 H 171 H Calcium Total Protein Albumin 08/16/17 08/16/17 08/16/17 06:14 06:14 11:34 WBC 12.8 H RBC 3.66 L Hgb 11.1 L Hct 32.5 L Neutrophils # 11.8 H Lymphocytes # 0.6 L D-Dimer Sodium Carbon Dioxide 20 L BUN 32 H Creatinine 1.35 H Glucose 157 H POC Glucose (mg/dL) 201 H Calcium 8.2 L Total Protein Albumin - Diagnostic Findings Chest x-ray: report reviewed, image reviewed CT scan - chest: report reviewed (Chest x-ray labs and medications are reviewed. ), image reviewed Assessment and Plan Assessment: Assessment COPD exacerbation in a patient with hypoxemic respiratory failure Likely left lung mass representing bronchogenic carcinoma, with bronchoscopy planned on of this week History of previous bypass grafting and subsequent sternal wound infection secondary to Escherichia coli History of hypertension History of hyperlipidemia History of ongoing tobacco use No evidence of pulmonary embolism. Plan: Plan dated 08/16/2017 The patient will be scheduled for bronchoscopy this week. We'll review the chart including labs x-rays and medications. We will make sure she is on appropriate medications for her COPD exacerbation. I suspect she may have a postobstructive pneumonia. We'll make sure she is on antibiotics. We counseled about the importance of smoking cessation. Additional recommendations and suggestions are forthcoming. We'll continue to follow closely. Time with Patient: Greater than 30
[2017-08-16] MEDS: MULTIVITAMINS, THERA 1 EACH TAB PO SCH (12:38)
[2017-08-16] MEDS: MEROPENEM 1 GM in SODIUM CHLORIDE 0.9% 100 ML IVPB SCH ×2 (14:17→22:23)
[2017-08-16] MEDS: SODIUM CHLORIDE 0.9% 1,000 ML IV SCH (14:26)
[2017-08-16 17:08] LABS: Glucose,Whole Blood 163 mg/dL (75-99)
[2017-08-16] MEDS: FORMOTEROL FUMARATE 20 MCG/2 ML NEBU INHALATION SCH (21:00)
[2017-08-16] MEDS: BUDESONIDE 1 MG/2 ML NEBU INHALATION SCH (21:00)
[2017-08-16 21:04] LABS: Glucose,Whole Blood 190 mg/dL (75-99)
[2017-08-16] MEDS: ATORVASTATIN 10 MG TAB PO SCH (21:24)
[2017-08-16] MEDS: GABAPENTIN 300 MG CAP PO SCH (21:25)
--- NOTE | 2017-08-16 22:34 | PN ---
PROGRESS NOTE DATE OF SERVICE: 08/16/2017 PRESENTING COMPLAINT: Short of breath, cough. INTERVAL HISTORY: This patient presented with COPD exacerbation, felt to have left upper lobe lung collapse, pneumonia, questionable CHF. Still has a cough, tired, sitting up, short of breath. REVIEW OF SYSTEMS: Done for constitutional, cardiovascular, GI, pulmonary; relevant findings as above. CURRENT MEDICATIONS: Include: 1. IV Solu-Medrol. 2. Bronchodilators and. 3. IV meropenem. EXAMINATION: Temperature 97.2 pulse 79, respirations 16, blood pressure 120/67, pulse 92% on 2L. GENERAL APPEARANCE: Sitting up, tired-appearing. EYES: Pupils equal. Conjunctivae normal. HEENT: External appearance of nose and ears normal. Oral cavity normal. NECK: JVD unable to assess. Mass not palpable. RESPIRATORY: Effort increased. LUNGS: Decreased breath sounds. Prolonged expiration. Bronchial breathing on the left side. CARDIOVASCULAR: First and second heart sounds normal. No edema. ABDOMEN: Soft, nontender. Liver and spleen not palpable. PSYCHIATRY: Alert and oriented x3. Mood and affect anxious. INVESTIGATIONS: White count 12.8. Potassium 3.7, BUN 32, creatinine 1.35. Accu-Cheks are noted. ASSESSMENT: 1. Postobstructive pneumonia. 2. Strongly suspicious for malignancy with metastatic disease. 3. Acute chronic obstructive pulmonary disease exacerbation in a current smoker. 4. Chronic nicotine dependence. Patient is a cigarette smoker. 5. Coronary artery disease, prior history of coronary bypass. 6. Essential hypertension. 7. Hyperlipidemia. 8. Stroke with left eye blindness. 9. Chronic hypoxic respiratory failure on 1.5L of oxygen at home. 10.Chronic low back pain from herniated disc. 11.Patient has no sternum from prior sternotomy. 12.Doubt congestive heart failure. 13.Hypertensive heart disease. PLAN: Continue current medication and treatment plan. Discussed with Dr. Wolf. He will be doing a bronchoscopy. We will keep a very close eye on patient's renal function. Cardiology has on IV Lasix. Follow. MMODL / IJN: [id number] /
[2017-08-17] MEDS: IPRATROPIUM-ALBUTEROL 3 ML NEB INHALATION SCH ×7 (01:14→22:15)
[2017-08-17 06:27] LABS: Glucose,Whole Blood 166 mg/dL (75-99)
[2017-08-17] MEDS: methylPREDNISolone SOD SUCCI 125 MG/2 ML VIAL IV SCH ×4 (06:31→22:08)
[2017-08-17] MEDS: INSULIN ASPART 100 UNIT/ML 1 ML 10 ML VIAL SQ SCH ×4 (06:31→21:21)
[2017-08-17] MEDS: CARVEDILOL 12.5 MG TAB PO SCH ×2 (06:31→17:44)
[2017-08-17 07:11] LABS: Basophils % (A) 0 %; Eosinophils % (A) 0 %; HCT 35.9 % (34.0-46.0); HGB 12.6 gm/dL (11.4-16.0); Lymphocytes % (A) 5 %; MCH 30.9 pg (25.0-35.0); MCV 88.1 fL (80.0-100.0); Mean Platelet Volume 7.8; Monocytes # (A) 0.4 k/uL (0-1.0); Monocytes % (A) 2 %; Neutrophils # (A) 18.6 k/uL (1.3-7.7); Neutrophils % (A) 92 %; Platelet Count 303 k/uL (150-450); RBC 4.07 m/uL (3.80-5.40); RDW 13.5 % (11.5-15.5); WBC 20.1 k/uL (3.8-10.6)
[2017-08-17 07:24] LABS: Calcium 8.4 mg/dL (8.4-10.2); Potassium 3.5 mmol/L (3.5-5.1)
[2017-08-17] MEDS: BUDESONIDE 1 MG/2 ML NEBU INHALATION SCH ×2 (07:48→19:41)
[2017-08-17] MEDS: FORMOTEROL FUMARATE 20 MCG/2 ML NEBU INHALATION SCH ×2 (07:48→19:41)
[2017-08-17] MEDS: MEROPENEM 1 GM in SODIUM CHLORIDE 0.9% 100 ML IVPB SCH ×2 (08:16→20:58)
[2017-08-17] MEDS: FUROSEMIDE 10 MG/ML 4 ML VIAL IV SCH (08:16)
[2017-08-17] MEDS: CHOLECALCIFEROL 1,000 UNIT TAB PO SCH (08:18)
[2017-08-17] MEDS: guaiFENesin 600 MG TABLET.ER PO SCH ×2 (08:19→20:56)
[2017-08-17] MEDS: DULoxetine HCL 60 MG CAPSULE.DR PO SCH (08:19)
[2017-08-17] MEDS: FLUTICASONE 50MCG/SPRAY NASAL 16GM EA NOSTRIL SCH (08:19)
[2017-08-17] MEDS: LISINOPRIL 10 MG TAB PO SCH (08:20)
[2017-08-17] MEDS: MULTIVITAMINS, THERA 1 EACH TAB PO SCH (08:20)
[2017-08-17] MEDS: POTASSIUM CHLORIDE ER 10 MEQ TAB.ER.PRT PO SCH (08:20)
[2017-08-17] MEDS ORDERED: ENOXAPARIN 30 MG/0.3 ML SYRINGE SQ SCH (09:00)
[2017-08-17 11:16] LABS: Glucose,Whole Blood 244 mg/dL (75-99)
[2017-08-17 12:06] VITALS: BMI 27.6
--- NOTE | 2017-08-17 12:19 | P.PN ---
Subjective Progress Note Date: 08/17/17 Principal diagnosis: COPD exacerbation with chronic hypoxemic respiratory failure, left lung mass suspicious for bronchogenic carcinoma Pulmonary consult dated 08/16/2017 72-year-old female who has a history of underlying COPD. Still smokes, comes in with complaints of increasing shortness of breath and coughing for the last couple of weeks. The patient has apparently been down in [place]. I'm not seen the patient for 8-10 years. I'm not sure why she fell out of my practice. She apparently is not having any fever or chills. She does cough. Produces occasional phlegm. Also some discomfort in the left chest area. She's had a previous history of a sternal wound infection caused by E. coli after bypass surgery. Chest x-ray and computed tomography scan are ominous-appearing the patient. Show a mass in the left mainstem. I suspect she may have bronchogenic carcinoma. The best hope would be that this would represent a mucous plug although I doubt that the to be the case. She has a history of hyperlipidemia hypertension COPD previous bypass grafting previous sternal wound infection and ongoing tobacco use with nicotine addiction. The patient is put on the bronchoscopy scheduled for . On 08/17/2017 patient seen in follow-up. Denies any worsening dyspnea, does have persistent coughing, with production of occasional phlegm. She still has some left chest discomfort, but no acute distress. Pulse ox on 2 L per nasal cannula is 94%, vital signs are stable, she is afebrile. Respirations are nonlabored, but shallow. The patient is on empiric antibiotics in the form of meropenem, nebulized bronchodilators, and IV steroids, on today's labs, there has been increase in the white count to 20.1 from 12.8, she denies any fever or chills. Patient is booked for a bronchoscopy biopsies with Dr. Wolf on 2017 in regards to the left lung mass which is suspicious for carcinoma. Objective - Vital Signs Vital signs: Vital Signs Temp 97.1 F L 08/17/17 11:18 Pulse 74 08/17/17 11:41 Resp 16 08/17/17 11:18 BP 121/58 08/17/17 11:18 Pulse Ox 94 L 08/17/17 11:18 Intake & Output 08/16/17 08/17/1718 18:59 06:59 18:59 Intake Total 1300 320 250 Output Total 550 1950 Balance 750 -1630 250 Weight 66.3 kg 66.3 kg Intake: IV 160 320 10 Invasive Line 1 10 10 Invasive Line 2 10 Sodium Chloride 0.9% 1, 140 320 000 ml @ 20 mls/hr IV . Q24H [facility] Rx#:[id number] Intake, IV Titration 100 Amount Meropenem 1 gm In Sodium 100 Chloride 0.9% 100 ml @ 200 mls/hr IVPB Q8HR [facility] Rx#:[id number] Oral 1040 240 Output: Urine 550 1950 Other: Voiding Method Toilet Toilet Toilet # Voids 3 1 - Exam No acute distress, oriented 3. HEENT examination is grossly unremarkable. Mucous membranes are moist. No oral lesions. Neck supple. Full range of motion. No adenopathy thyromegaly or neck vein distention. Cardiovascular examination reveals regular rhythm rate. S1-S2 normal. No S3 or S4. No discernible murmur noted. Lungs reveal diminished breath sounds on the left. A few scattered rhonchi. Some mild expiratory wheezes. Abdomen soft bowel sounds are heard. No masses or tenderness. Extremities are intact. No cyanosis clubbing or edema. Skin is without rash or lesion. Neurologic examination is brief but nonfocal. - Labs CBC & Chem 7: 08/17/17 06:22 08/17/17 06:22 Labs: Abnormal Lab Results - Last 24 Hours (Table) 08/16/17 08/16/17 08/17/17 Range/Units 16:39 21:02 06:22 WBC (3.8-10.6) k/uL Neutrophils # (1.3-7.7) k/uL Carbon Dioxide 21 L (22-30) mmol/L BUN 43 H (7-17) mg/dL Creatinine 1.50 H (0.52-1.04) mg/dL Glucose 147 H (74-99) mg/dL POC Glucose (mg/dL) 163 H 190 H (75-99) mg/dL 08/17/17 08/17/17 08/17/17 Range/Units 06:22 06:26 11:08 WBC 20.1 H (3.8-10.6) k/uL Neutrophils # 18.6 H (1.3-7.7) k/uL Carbon Dioxide (22-30) mmol/L BUN (7-17) mg/dL Creatinine (0.52-1.04) mg/dL Glucose (74-99) mg/dL POC Glucose (mg/dL) 166 H 244 H (75-99) mg/dL Assessment and Plan Plan: Assessment: COPD exacerbation in a patient with hypoxemic respiratory failure Likely left lung mass representing bronchogenic carcinoma, with bronchoscopy planned on of this week History of previous bypass grafting and subsequent sternal wound infection secondary to Escherichia coli History of hypertension History of hyperlipidemia History of ongoing tobacco use No evidence of pulmonary embolism. Plan: Continue current antibiotic coverage, continue IV steroids, and nebulous bronchodilators, patient is scheduled for bronchoscopy with biopsies and BAL on , 08/18/2017 in regards to the left lung mass suspicious for carcinoma, and postobstructive pneumonia in the left lower lung. Nothing by mouth after midnight, this was discussed with the patient, and the patient is in agreement to proceed with bronchoscopy. I performed a history & physical examination of the patient and discussed their management with my nurse practitioner, Latonya Arteaga. I reviewed the nurse practitioner's note and agree with the documented findings and plan of care. Lung sounds are diminished lung sounds on the left, with a few scattered wheezes. The findings and the impression was discussed with the patient. I attest to the documentation by the nurse practitioner. Time with Patient: Less than 30
--- NOTE | 2017-08-17 13:59 | P.PN ---
Subjective Progress Note Date: 08/17/17 This is a 72-year-old female with history of hyperlipidemia, hypertension, COPD with home O2 use, coronary artery disease with prior bypass surgery, who presented to the hospital with symptoms of shortness of breath, cough with yellowish-green as sputum production and low-grade temperature. EKG on arrival here showed a normal sinus rhythm with nonspecific ST-T wave changes in the lateral leads. Chest x-ray showed completely opacified left hemithorax which may reflect product of prior surgery or total pneumonectomy. Underlying infiltrates need to be considered if there is no such history. D-dimer came back to be elevated and for this reason patient underwent a CAT scan of the chest. CT did not reveal any evidence for acute pulmonary embolism. Background moderate emphysema changes with primary lung malignancy felt to be present. There is a left hilar mass causing left upper lobe and lingular lobar atelectasis. There is abnormal thoracic adenopathy noted. 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 Temperature on arrival 99.7, blood pressure 122/60, heart rate in the 80s, 94% on room air. White blood cell count on admission 15.3, 12.8 this morning. Hemoglobin 11.0, left 0.1 this morning. Platelet count 2:15. D-dimer 4.2. Sodium 142, potassium 3.7, BUN 32 , creatinine 1.3. Troponin 0.013, BNP level 4300. At the time of our examination this morning, patient is quite short of breath. 08/17/2017 Patient seen and examined this morning, continues to be quite short of breath, however improved from admission. Let pressure 120/60 with a heart rate in the 70s, 94% on 2 L of oxygen. White blood cell count 20.1, hemoglobin 12.6, hematocrit 35.9 and platelets 303. Sodium 141, potassium 3.5, BUN 43, creatinine 1.5. We will discontinue the IV Lasix. We will also follow this patient along with you now on an as-needed basis only, please don't hesitate to call with any questions. Objective - Vital Signs Vital signs: Vital Signs Temp 97.1 F L 08/17/17 11:18 Pulse 74 08/17/17 11:41 Resp 16 08/17/17 11:18 BP 121/58 08/17/17 11:18 Pulse Ox 94 L 08/17/17 11:18 Intake & Output 08/16/17 08/17/17 08/17/17 18:59 06:59 18:59 Intake Total 1300 320 250 Output Total 550 1950 Balance 750 -1630 250 Weight 66.3 kg 66.3 kg Intake: IV 160 320 10 Invasive Line 1 10 10 Invasive Line 2 10 Sodium Chloride 0.9% 1, 140 320 000 ml @ 20 mls/hr IV . Q24H [facility] Rx#:[id number] Intake, IV Titration 100 Amount Meropenem 1 gm In Sodium 100 Chloride 0.9% 100 ml @ 200 mls/hr IVPB Q8HR [facility] Rx#:[id number] Oral 1040 240 Output: Urine 550 1950 Other: Voiding Method Toilet Toilet Toilet # Voids 3 1 - Exam GENERAL: 72-year-old female. Quite short of breath at the time of our examination. HEENT: Head is atraumatic, normocephalic. Pupils equal, round. Sclera anicteric. Conjunctiva are clear. Mucous membranes of the mouth are moist. Neck is supple. There is no elevated jugular venous pressure.] bruit is heard. HEART EXAMINATION: Heart S1, S2 normal. No murmur or gallop heard. CHEST EXAMINATION: Lungs reveal decreased air exchange throughout with diminished air entry bilaterally. Scattered coarse rhonchi throughout. ABDOMEN: Soft, nontender. Bowel sounds are heard. No organomegaly noted. EXTREMITIES: 2+ peripheral pulses with no evidence of peripheral edema and no calf tenderness noted. NEUROLOGIC patient is awake, alert and oriented -3. - Labs CBC & Chem 7: 08/17/17 06:22 08/17/17 06:22 Labs: Abnormal Lab Results - Last 24 Hours (Table) 08/16/17 08/16/17 08/17/17 Range/Units 16:39 21:02 06:22 WBC (3.8-10.6) k/uL Neutrophils # (1.3-7.7) k/uL Carbon Dioxide 21 L (22-30) mmol/L BUN 43 H (7-17) mg/dL Creatinine 1.50 H (0.52-1.04) mg/dL Glucose 147 H (74-99) mg/dL POC Glucose (mg/dL) 163 H 190 H (75-99) mg/dL 08/17/17 08/17/17 08/17/17 Range/Units 06:22 06:26 11:08 WBC 20.1 H (3.8-10.6) k/uL Neutrophils # 18.6 H (1.3-7.7) k/uL Carbon Dioxide (22-30) mmol/L BUN (7-17) mg/dL Creatinine (0.52-1.04) mg/dL Glucose (74-99) mg/dL POC Glucose (mg/dL) 166 H 244 H (75-99) mg/dL Assessment and Plan Plan: Assessment and plan #1 symptoms of progressively worsening shortness of breath, exacerbation of COPD , possible tracheobronchitis. No evidence of PE on CAT scan. There is evidence of moderate emphysema change with a primary lung malignancy felt to be present. There is a left hilar mass causing left upper lobe and lingular lobar atelectasis. Abnormal thoracic adenopathy noted. Probable left adrenal metastatic lesion also noted. #2 history of COPD #3 nicotine dependence #4 coronary artery disease with prior bypass surgery, patient developed subsequent E. coli infection requiring sternotomy. # 5 hypertension #6 hyperlipidemia Plan Echocardiogram with Doppler study was performed which revealed a normal left ventricular systolic function. From cardiology's perspective, we will discontinue the IV Lasix, follow the patient along with you now on an as-needed basis only, please don't hesitate to call with any questions. DNP note has been reviewed, I agree with a documented findings and plan of care. Patient was seen and examined.
[2017-08-17] MEDS: SODIUM CHLORIDE 0.9% 1,000 ML IV SCH (15:15)
[2017-08-17 16:19] LABS: Glucose,Whole Blood 241 mg/dL (75-99)
[2017-08-17 20:53] LABS: Glucose,Whole Blood 256 mg/dL (75-99)
[2017-08-17] MEDS: GABAPENTIN 300 MG CAP PO SCH (20:55)
[2017-08-17] MEDS: ATORVASTATIN 10 MG TAB PO SCH (20:55)
[2017-08-17] MEDS: ALPRAZolam 0.25 MG TAB PO PRN (22:50)
[2017-08-17] MEDS ORDERED: IPRATROPIUM-ALBUTEROL 3 ML NEB INHALATION PRN (22:55)
[2017-08-18] MEDS: CARVEDILOL 12.5 MG TAB PO SCH ×2 (02:34→17:46)
[2017-08-18] MEDS: IPRATROPIUM-ALBUTEROL 3 ML NEB INHALATION SCH ×5 (02:49→20:07)
[2017-08-18 06:09] LABS: Glucose,Whole Blood 189 mg/dL (75-99)
[2017-08-18] MEDS: methylPREDNISolone SOD SUCCI 125 MG/2 ML VIAL IV SCH (06:23)
[2017-08-18] MEDS: INSULIN ASPART 100 UNIT/ML 1 ML 10 ML VIAL SQ SCH ×4 (06:24→22:23)
[2017-08-18 07:43] LABS: Basophils % (A) 0 %; Eosinophils % (A) 0 %; HCT 37.3 % (34.0-46.0); HGB 12.6 gm/dL (11.4-16.0); Lymphocytes # (A) 1.2 k/uL (1.0-4.8); Lymphocytes % (A) 7 %; MCHC 33.7 g/dL (31.0-37.0); MCV 89.1 fL (80.0-100.0); Mean Platelet Volume 7.8; Monocytes # (A) 0.5 k/uL (0-1.0); Monocytes % (A) 3 %; Neutrophils # (A) 15.7 k/uL (1.3-7.7); Neutrophils % (A) 90 %; Platelet Count 302 k/uL (150-450); RBC 4.18 m/uL (3.80-5.40); RDW 13.1 % (11.5-15.5); WBC 17.5 k/uL (3.8-10.6)
[2017-08-18 07:56] LABS: Calcium 8.3 mg/dL (8.4-10.2); Potassium 3.5 mmol/L (3.5-5.1)
[2017-08-18] MEDS: MEROPENEM 1 GM in SODIUM CHLORIDE 0.9% 100 ML IVPB SCH ×2 (08:26→21:01)
[2017-08-18] MEDS: BUDESONIDE 1 MG/2 ML NEBU INHALATION SCH (08:28)
[2017-08-18] MEDS: FORMOTEROL FUMARATE 20 MCG/2 ML NEBU INHALATION SCH (08:30)
--- NOTE | 2017-08-18 09:18 | PN ---
PROGRESS NOTE DATE OF SERVICE: 08/17/2017 PRESENTING COMPLAINT: Short of breath, cough. INTERVAL HISTORY: This patient was seen by me yesterday. Admitted with COPD exacerbation, possibly left upper lobe collapse, pneumonia, doubtful CHF. The patient is a bit tired. Breathing is a shade better. No new issues. Tired and run down. REVIEW OF SYSTEMS: Review of systems done for constitutional, cardiovascular. GI, pulmonary; relevant findings as above. CURRENT MEDICATIONS: Current medications include IV Lasix, IV steroids, bronchodilators. PHYSICAL EXAMINATION: On examination, temperature 97.1 pulse 78, respirations 16, blood pressure 121/58, pulse ox 94% on 2 L. GENERAL APPEARANCE: Sitting up tired-appearing. EYES: Pupils equal. Conjunctivae normal. HENT: External appearance of nose and ears normal. Oral cavity normal. NECK: JVD unable to assess. Mass not palpable. RESPIRATORY: Effort increased. LUNGS: Decreased breath sounds. Prolonged expiration. Bronchial breathing on the left side posteriorly. CARDIOVASCULAR: First and second sounds normal. No edema. ABDOMEN: Soft, nontender. Liver and spleen not palpable. PSYCHIATRY: Alert and oriented x3. Mood and affect slightly anxious appearing. INVESTIGATIONS: White count 20.1, hemoglobin 12.6. BUN 43, creatinine 1.50. ASSESSMENT: 1. Acute postobstructive pneumonia, present on admission. 2. Strongly suspicious for malignancy of the lung with metastatic disease. 3. Acute chronic obstructive pulmonary disease exacerbation in a current smoker. 4. Chronic nicotine dependence. Patient is a cigarette smoker. 5. Coronary artery disease, prior history of coronary artery bypass. 6. Essential hypertension. 7. Hyperlipidemia. 8. Stroke with left eye blindness. 9. Chronic hypoxic respiratory failure on 1.5 L oxygen at home. 10.Chronic low back pain from herniated disc. 11.The patient has no sternum from prior sternotomy. 12.Doubt for congestive heart failure. 13.Hypertensive heart disease. 14.Chronic kidney disease probably stage III from hypertensive nephrosclerosis. PLAN: Continue current medication and treatment plan. Care was discussed with the patient. Await bronchoscopy by Dr. Wolf. Cardiology has discontinued the IV Lasix. Care was discussed with the patient. Will follow. MMODL / IJN: [id number] /
[2017-08-18] MEDS ORDERED: LORazepam 2 MG/ML INJ IV STA (10:45)
[2017-08-18 11:42] VITALS: RESP 16
[2017-08-18] MEDS ORDERED: LIDOCAINE 1% INJ 10MG/ML (20 ML MDV) ONE (12:01)
[2017-08-18] MEDS ORDERED: KETAMINE 10 MG/ML 20 ML VIAL ONE (12:01)
[2017-08-18] MEDS ORDERED: PROPOFOL 10 MG/ML 20 ML VIAL IV ONE (12:01)
[2017-08-18] MEDS ORDERED: GLYCOPYRROLATE 0.2 MG/ML 2 ML VIAL ONE (12:01)
[2017-08-18] MEDS ORDERED: IV FLUID CONTINUATION 1,000 ML IV ONE (12:01)
[2017-08-18] MEDS ORDERED: LIDOCAINE 2% INJ 20 MG/ML INTRATRACH ONE (12:21)
--- NOTE | 2017-08-18 13:21 | PCN ---
PROCEDURE NOTE PROCEDURE: Bronchoscopy. Airway examination, therapeutic lavage, BAL left lower lobe, brushes left lower lobe and endobronchial biopsies left lower lobe. PREOPERATIVE DIAGNOSIS: Left lung mass. POSTOPERATIVE DIAGNOSIS: Left lung mass. Operators were Dr. Wolf and Dr. Ott. There was informed consent. There was universal timeout. The procedure took place in room #1 with [facility]. ANESTHESIA: NUMERICAL CONTROL OPERATOR provided general anesthesia and unconscious sedation. PROCEDURE: After the patient was adequately sedated and being fully monitored, the bronchoscope was inserted through the left nostril. It passed through the left nasopharynx into the oropharynx. The hypopharynx was identified and topicalized. The hypopharyngeal structures including the anterior commissure, true cords, false cords, arytenoids, piriform sinuses, right and left vallecula and epiglottis all appeared relatively normal. The glottic opening was topicalized. The bronchoscope was pushed through the glottic opening into the trachea. Trachea appeared normal. Tracheal omid was sharp. Right mainstem was topicalized. The right upper lobe and its 3 segments, the right middle lobe and its 2 segments, right lower lobe and its 5 segments, all appeared relatively normal. There was no mass or tumor. There was no significant bleeding or secretions. On the left side, left upper lobe proper and lingula appeared normal. There was definite obstruction noted in the left lower lobe bronchus. There was some debris noted. The patient had significant narrowing of the left lower lobe bronchus. At this point, brushes were performed. Next, washes were performed of the left lower lobe and then finally endobronchial biopsies were done of the left lower lobe. The patient tolerated the procedure well. There was minimal bleeding. The bronchoscope was then withdrawn after we ensured hemostasis. Next, the specimens were sent to the laboratory for analysis and the patient will be recovered. There was no immediate complication. MMODL / IJN: [id number] /
--- NOTE | 2017-08-18 13:55 | P.PN ---
Subjective Progress Note Date: 08/18/17 Principal diagnosis: Shortness of breath, lung mass Progress note dated 08/18/2017 72-year-old female with a history of COPD exacerbation and hypoxemic respiratory failure as well as a left lung mass representing likely, bronchogenic carcinoma. She had bronchoscopy today with biopsies. She had significant endobronchial disease. We ended up biopsy and brushing and washing the left lower lobe. Anyway in addition, she has a history of bypass grafting and subsequent sternal wound infection secondary to E. coli benign essential hypertension hyperlipidemia ongoing tobacco use and no evidence of pulmonary embolism. She seems upbeat given her likely diagnosis. I did tell the family that would take 5-7 days to get the results from the evaluation. Objective - Vital Signs Vital signs: Vital Signs Temp 97.8 F 08/18/17 12:51 Pulse 105 H 08/18/17 12:51 Resp 16 08/18/17 12:51 BP 143/62 08/18/17 12:51 Pulse Ox 94 L 08/18/17 12:51 Intake & Output 08/17/17 08/18/17 08/18/17 18:59 06:59 18:59 Intake Total 522 420 100 Output Total 1200 1250 Balance -678 420 -1150 Weight 66.3 kg Intake: IV 10 420 100 Invasive Line 1 10 Meropenem 1 gm In Sodium 100 Chloride 0.9% 100 ml @ 200 mls/hr IVPB Q12HR [facility] Rx#:[id number] Sodium Chloride 0.9% 1, 320 000 ml @ 20 mls/hr IV . Q24H [facility] Rx#:[id number] Oral 512 Output: Urine 1200 1250 Other: Voiding Method Toilet Toilet Toilet # Voids 1 2 - Exam No acute distress, oriented 3. Nasal O2 noted. HEENT examination is grossly unremarkable. Mucous membranes are moist. No oral lesions. Neck supple. Full range of motion. No adenopathy thyromegaly or neck vein distention. Cardiovascular examination reveals regular rhythm rate. S1-S2 normal. No S3 or S4. No discernible murmur noted. Lungs reveal coarse breath sounds particularly on the left side. Breath sounds are diminished on the left side. This some expiratory wheezing as well. The right lung is relatively clear. Abdomen soft bowel sounds are heard. No masses or tenderness. Extremities are intact. No cyanosis clubbing or edema. Skin is without rash or lesion. Neurologic examination is brief but nonfocal. - Labs CBC & Chem 7: 08/18/17 06:39 08/18/17 06:39 Labs: Abnormal Lab Results - Last 24 Hours (Table) 08/17/17 08/17/17 08/18/17 Range/Units 16:17 20:52 06:08 WBC (3.8-10.6) k/uL Neutrophils # (1.3-7.7) k/uL BUN (7-17) mg/dL Creatinine (0.52-1.04) mg/dL Glucose (74-99) mg/dL POC Glucose (mg/dL) 241 H 256 H 189 H (75-99) mg/dL Calcium (8.4-10.2) mg/dL 08/18/17 08/18/17 Range/Units 06:39 06:39 WBC 17.5 H (3.8-10.6) k/uL Neutrophils # 15.7 H (1.3-7.7) k/uL BUN 48 H (7-17) mg/dL Creatinine 1.30 H (0.52-1.04) mg/dL Glucose 165 H (74-99) mg/dL POC Glucose (mg/dL) (75-99) mg/dL Calcium 8.3 L (8.4-10.2) mg/dL Assessment and Plan Assessment: Assessment COPD exacerbation in a patient with hypoxemic respiratory failure Likely left lung mass representing bronchogenic carcinoma, with bronchoscopy on 08/18/2017. History of previous bypass grafting and subsequent sternal wound infection secondary to Escherichia coli History of hypertension History of hyperlipidemia History of ongoing tobacco use No evidence of pulmonary embolism. Plan: Plan dated 08/16/2017 The patient will be scheduled for bronchoscopy this week. We'll review the chart including labs x-rays and medications. We will make sure she is on appropriate medications for her COPD exacerbation. I suspect she may have a postobstructive pneumonia. We'll make sure she is on antibiotics. We counseled about the importance of smoking cessation. Additional recommendations and suggestions are forthcoming. We'll continue to follow closely. Plan dated 08/18/2017 The patient had a bronch today. Additional recommendations and suggestions are forthcoming. Labs x-rays a medications are all reviewed. The patient could be discharged home the next day or so. We'll follow up with her in the office. Time with Patient: Less than 30
[2017-08-18] MEDS: CHOLECALCIFEROL 1,000 UNIT TAB PO SCH (15:03)
[2017-08-18] MEDS: FLUTICASONE 50MCG/SPRAY NASAL 16GM EA NOSTRIL SCH (15:04)
[2017-08-18] MEDS: DULoxetine HCL 60 MG CAPSULE.DR PO SCH (15:04)
[2017-08-18] MEDS: POTASSIUM CHLORIDE ER 10 MEQ TAB.ER.PRT PO SCH (15:05)
[2017-08-18] MEDS: guaiFENesin 600 MG TABLET.ER PO SCH ×2 (15:05→21:01)
[2017-08-18] MEDS: MULTIVITAMINS, THERA 1 EACH TAB PO SCH (15:05)
[2017-08-18] MEDS: LISINOPRIL 10 MG TAB PO SCH (15:05)
[2017-08-18] MEDS: SODIUM CHLORIDE 0.9% 1,000 ML IV SCH (15:09)
[2017-08-18] MEDS ORDERED: methylPREDNISolone SOD SUCCI 40 MG/ML 1 ML VIAL IV SCH (16:00)
[2017-08-18 17:02] LABS: Glucose,Whole Blood 177 mg/dL (75-99)
[2017-08-18] MEDS: SYMBICORT 160-4.5 MCG INHALER INHALATION SCH (20:07)
[2017-08-18] MEDS: ATORVASTATIN 10 MG TAB PO SCH (21:01)
[2017-08-18] MEDS: GABAPENTIN 300 MG CAP PO SCH (21:01)
[2017-08-18 22:20] LABS: Glucose,Whole Blood 177 mg/dL (75-99)
[2017-08-18] MEDS: ALPRAZolam 0.25 MG TAB PO PRN (22:24)
--- NOTE | 2017-08-18 23:44 | PN ---
PROGRESS NOTE DATE OF SERVICE: 08/18/2017 PRESENTING COMPLAINT: This is a patient presented with COPD exacerbation and postobstructive pneumonia, underwent a bronchoscopy today, found to have a low left lower bronchus narrowing. [place] biopsy was taken. The patient is otherwise stable. is present. Breathing is stable. REVIEW OF SYSTEMS: Done for constitutional, cardiovascular, GI, pulmonary; relevant findings as above. CURRENT MEDICATIONS: Reviewed. EXAMINATION: Temperature 97.1, pulse 99, respirations 18, blood pressure 143/72, pulse ox 93% on 2 L. GENERAL APPEARANCE: Sitting up, awake. EYES: Pupils equal. Conjunctivae normal. HEENT: External appearance of nose and ears normal. Oral cavity normal. NECK: JVD unable to assess. Mass not palpable. Respiratory effort normal. LUNGS: Decreased breath sounds. Prolonged expiration. CARDIOVASCULAR: First and second sounds normal. No edema. ABDOMEN: Soft, nontender. Liver and spleen not palpable. PSYCHIATRY: Alert and oriented x3. Mood and affect normal. INVESTIGATIONS: White count 7.5, hemoglobin 12.6, potassium 3.5, BUN 48, creatinine 1.30. ASSESSMENT: 1. Acute postobstructive pneumonia. 2. Lung mass strongly suspicion for malignancy with metastatic disease. 3. Acute chronic obstructive pulmonary disease exacerbation in a current smoker, improved. 4. Chronic nicotine dependence. The patient is a cigarette smoker. 5. Coronary artery disease, prior history of coronary bypass. 6. Essential hypertension. 7. Hyperlipidemia. 8. Stroke with left eye blindness. 9. Chronic hypoxic respiratory failure on 1.5 L oxygen at home. 10.Chronic low back pain from herniated disc. 11.Patient has no sternum from prior sternotomy. 12.Doubt for congestive heart. 13.Hypertensive heart disease. 14.Chronic kidney disease stage 3 from hypertensive nephrosclerosis. PLAN: Care was discussed with the patient's . If the patient remains stable, the patient will be discharged tomorrow. The patient already been switched over to oral prednisone and we will switch the patient over to Augmentin. MMODL / IJN: [id number] /
[2017-08-19] MEDS: IPRATROPIUM-ALBUTEROL 3 ML NEB INHALATION SCH ×5 (03:07→15:28)
[2017-08-19 05:58] VITALS: BP 119/69; TEMP 98.8
[2017-08-19] MEDS: SYMBICORT 160-4.5 MCG INHALER INHALATION SCH (06:55)
[2017-08-19 07:14] LABS: Glucose,Whole Blood 106 mg/dL (75-99)
[2017-08-19] MEDS: CARVEDILOL 12.5 MG TAB PO SCH (07:54)
[2017-08-19] MEDS: INSULIN ASPART 100 UNIT/ML 1 ML 10 ML VIAL SQ SCH ×2 (07:55→13:06)
[2017-08-19] MEDS: CHOLECALCIFEROL 1,000 UNIT TAB PO SCH (07:55)
[2017-08-19] MEDS: DULoxetine HCL 60 MG CAPSULE.DR PO SCH (07:55)
[2017-08-19] MEDS: guaiFENesin 600 MG TABLET.ER PO SCH (07:55)
[2017-08-19] MEDS: LISINOPRIL 10 MG TAB PO SCH (07:56)
[2017-08-19] MEDS: POTASSIUM CHLORIDE ER 10 MEQ TAB.ER.PRT PO SCH (07:56)
[2017-08-19] MEDS: FLUTICASONE 50MCG/SPRAY NASAL 16GM EA NOSTRIL SCH (07:59)
[2017-08-19 08:07] LABS: Calcium 7.9 mg/dL (8.4-10.2); Potassium 3.7 mmol/L (3.5-5.1)
[2017-08-19] MEDS ORDERED: predniSONE 20 MG TAB PO SCH (09:00)
[2017-08-19] MEDS ORDERED: LEVOFLOXACIN 750 MG TAB PO SCH (09:00)
[2017-08-19 10:59] VITALS: PULSE 88
--- NOTE | 2017-08-19 11:12 | P.PN ---
Subjective Progress Note Date: 08/19/17 Principal diagnosis: COPD exacerbation with chronic hypoxemic respiratory failure, left lung mass suspicious for bronchogenic carcinoma Pulmonary consult dated 08/16/2017 72-year-old female who has a history of underlying COPD. Still smokes, comes in with complaints of increasing shortness of breath and coughing for the last couple of weeks. The patient has apparently been down in [place]. I'm not seen the patient for 8-10 years. I'm not sure why she fell out of my practice. She apparently is not having any fever or chills. She does cough. Produces occasional phlegm. Also some discomfort in the left chest area. She's had a previous history of a sternal wound infection caused by E. coli after bypass surgery. Chest x-ray and computed tomography scan are ominous-appearing the patient. Show a mass in the left mainstem. I suspect she may have bronchogenic carcinoma. The best hope would be that this would represent a mucous plug although I doubt that the to be the case. She has a history of hyperlipidemia hypertension COPD previous bypass grafting previous sternal wound infection and ongoing tobacco use with nicotine addiction. The patient is put on the bronchoscopy scheduled for . On 08/17/2017 patient seen in follow-up. Denies any worsening dyspnea, does have persistent coughing, with production of occasional phlegm. She still has some left chest discomfort, but no acute distress. Pulse ox on 2 L per nasal cannula is 94%, vital signs are stable, she is afebrile. Respirations are nonlabored, but shallow. The patient is on empiric antibiotics in the form of meropenem, nebulized bronchodilators, and IV steroids, on today's labs, there has been increase in the white count to 20.1 from 12.8, she denies any fever or chills. Patient is booked for a bronchoscopy biopsies with Dr. Wolf on 2017 in regards to the left lung mass which is suspicious for carcinoma. On 08/19/2017 patient seen in follow-up on medical surgical floor. She has been moved him from selective care unit down to the fourth floor, and she remains stable. No worsening dyspnea. Pulse ox on 2 L per nasal cannula is 95% , sex is 90%, room air pulse ox with exercise is 78%. The patient wears oxygen is needed, however in view of her acute exacerbation of COPD, and suspected bronchogenic carcinoma the patient will likely need oxygen [id number]. Lung sounds are slightly diminished over right lower lobe, clear on the left. Patient is afebrile, his labs were reviewed, BNP was done, CBC, lites are within normal limits, BUN is 41, creatinine is 1.2. No fever no chills, no worsening dyspnea, patient states she has severe orthopnea and is requesting a hospital bed delivered to her house. We'll speak to the telecommunications network planner, and the patient is stable for discharge home today from pulmonary standpoint. Will need outpatient follow-up in the office in regards to results of the lung mass biopsy. Objective - Vital Signs Vital signs: Vital Signs Temp 98.8 F 08/19/17 05:57 Pulse 88 08/19/17 10:58 Resp 16 08/19/17 05:57 BP 119/69 08/19/17 05:57 Pulse Ox 90 L 08/19/17 09:38 Intake & Output 08/18/17 08/19/17 08/19/17 18:59 06:59 18:59 Intake Total 740 200 Output Total 1250 Balance -510 200 Weight 66.3 kg 66.3 kg Intake: IV 380 Meropenem 1 gm In Sodium 100 Chloride 0.9% 100 ml @ 200 mls/hr IVPB Q12HR [facility] Rx#:[id number] Sodium Chloride 0.9% 1, 180 000 ml @ 20 mls/hr IV . Q24H [facility] Rx#:[id number] Oral 360 200 Output: Urine 1250 Other: Voiding Method Toilet Toilet # Voids 2 0 - Exam No acute distress, oriented 3. HEENT examination is grossly unremarkable. Mucous membranes are moist. No oral lesions. Neck supple. Full range of motion. No adenopathy thyromegaly or neck vein distention. Cardiovascular examination reveals regular rhythm rate. S1-S2 normal. No S3 or S4. No discernible murmur noted. Lungs reveal diminished breath sounds on the right. A few scattered rhonchi. Abdomen soft bowel sounds are heard. No masses or tenderness. Extremities are intact. No cyanosis clubbing or edema. Skin is without rash or lesion. Neurologic examination is brief but nonfocal. - Labs CBC & Chem 7: 08/18/17 06:39 08/19/17 06:50 Labs: Abnormal Lab Results - Last 24 Hours (Table) 08/18/17 08/18/17 08/19/17 Range/Units 16:58 22:19 06:50 BUN 41 H (7-17) mg/dL Creatinine 1.22 H (0.52-1.04) mg/dL POC Glucose (mg/dL) 177 H 177 H (75-99) mg/dL Calcium 7.9 L (8.4-10.2) mg/dL 08/19/17 Range/Units 06:58 BUN (7-17) mg/dL Creatinine (0.52-1.04) mg/dL POC Glucose (mg/dL) 106 H (75-99) mg/dL Calcium (8.4-10.2) mg/dL Microbiology - Last 24 Hours (Table) 08/18/17 12:00 Gram Stain - Preliminary Bronchial Washings - Left Bronchial Washings Culture - Preliminary 08/18/17 12:00 Acid Fast Bacilli Smear - Final Bronchial Washings - Left Acid Fast Bacilli Culture - Preliminary 08/18/17 08:55 Gram Stain - Preliminary Sputum 08/18/17 12:00 Fungal Culture - Preliminary Bronchial Washings - Left Assessment and Plan Plan: Assessment: COPD exacerbation in a patient with hypoxemic respiratory failure Likely left lung mass representing bronchogenic carcinoma, bronchoscopy with biopsy of the left lower lobe endobronchial mass was done on 08/18/2017, and the biopsy results are pending at this time History of previous bypass grafting and subsequent sternal wound infection secondary to Escherichia coli History of hypertension History of hyperlipidemia History of ongoing tobacco use No evidence of pulmonary embolism. Plan: From pulmonary standpoint patient is stable for discharge home today on outpatient course of prednisone, and antibiotics. Patient will be seen in follow-up in regards to the results of her left lower lobe endobronchial mass biopsy within one week. Arrangements will be made for home oxygen 2 L per nasal cannula around the clock, and hospital bed. I performed a history & physical examination of the patient and discussed their management with my nurse practitioner, Latonya Arteaga. I reviewed the nurse practitioner's note and agree with the documented findings and plan of care. Lung sounds are diminished lung sounds on the right. The findings and the impression was discussed with the patient. I attest to the documentation by the nurse practitioner. Time with Patient: Less than 30
[2017-08-19 12:11] LABS: Glucose,Whole Blood 109 mg/dL (75-99)
[2017-08-19] MEDS: MULTIVITAMINS, THERA 1 EACH TAB PO SCH (13:05)
--- NOTE | 2017-08-19 23:10 | DS ---
DISCHARGE SUMMARY DATE OF ADMISSION: 08/15/2017. DATE OF DISCHARGE: 08/19/2017. FINAL DIAGNOSES: 1. Acute postobstructive pneumonia. 2. 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 3. Acute chronic obstructive pulmonary disease exacerbation in a current smoker. 4. Chronic nicotine dependence in a cigarette smoker. 5. Coronary artery disease, prior history of coronary bypass. 6. Essential hypertension. 7. Hyperlipidemia. 8. Stroke with left eye blindness. 9. Chronic hypoxic respiratory failure on 1.5 L oxygen at home. 10.Chronic low back pain from herniated disk. 11.The patient has no sternum from prior sternotomy. 12.Hypertensive heart disease. 13.Chronic kidney disease stage 3 from hypertensive nephrosclerosis. HOSPITAL COURSE: This patient presented with shortness of breath, cough, felt to have postobstructive pneumonia. Did undergo a bronchoscopy with biopsy. Later today saw the results, showing small-cell carcinoma. The patient was seen by Dr. Wolf earlier today. The patient will follow up with him in the office and decision will be made from there. The patient's 2D echo showed preserved LV function. EXAM: Lungs decreased breath sounds. Cardiovascular, 1st and 2nd sounds normal. CONSULTATION: Dr. Wolf from Pulmonary; Dr. Tanmay Verduzco from Cardiology. DISCHARGE MEDICATIONS: 1. Aspirin 81 mg p.o. b.i.d. 2. Coreg 12.5 p.o. b.i.d. 3. Vitamin D3, 4000 units p.o. daily. 4. Cymbalta 50 mg p.o. daily. 5. Flonase 1 spray each nostril daily. 6. Gabapentin 600 mg at bedtime. 7. Warren 10 1 tab every 4 hours p.r.n. 8. Prinivil 10 mg p.o. daily. 9. Multivitamin 1 tablet p.o. daily. 10.Potassium 10 mEq p.o. daily. 11.Zocor 10 mg at bedtime. 12.Demadex 5 mg p.o. daily,. 13.Symbicort 160/4.5 two puffs b.i.d. 14.DuoNeb q.i.d. 15. every 48 hours 5 tablets prednisone taper. 16.Home oxygen to continue at all times, otherwise patient does desaturate to around the 80s. FOLLOWUP: 1. Follow up with Dr. Helton in 10 days. 2. Follow up with Dr. Wolf on 09/01/2017. 3. Follow up with Dr. Byron Benites on 08/23/2017. MMODL / IJN: [id number] /
[2017-08-21] MEDS ORDERED: LEVOFLOXACIN 750 MG TAB PO SCH (09:00)
== END 2017-08-19 16:13 | disposition home or self-care (01) | DRG 166 ==
LOC: EC 10:13 → 6SEL 13:29 → 4MS4W 08-18 21:15
PROVIDERS: ADMIT Hospitalist; ATTEND Hospitalist
PROC: 0B9J8ZX Drainage of Left Lower Lung Lobe, Via Natural or Artificial Opening Endoscopic, Diagnostic (ICD-10-PCS; principal; 2017-08-18 12:40)
PROC: 0BBJ8ZX Excision of Left Lower Lung Lobe, Via Natural or Artificial Opening Endoscopic, Diagnostic (ICD-10-PCS; principal; 2017-08-18 12:40)
DX: J43.9 Emphysema, unspecified (principal); J18.9 Pneumonia, unspecified organism; C34.90 Malignant neoplasm of unspecified part of unspecified bronchus or lung; C79.72 Secondary malignant neoplasm of left adrenal gland; I13.0 Hypertensive heart and chronic kidney disease with heart failure and stage 1 through stage 4 chronic kidney disease, or unspecified chronic kidney disease; J96.11 Chronic respiratory failure with hypoxia; E78.5 Hyperlipidemia, unspecified; F17.210 Nicotine dependence, cigarettes, uncomplicated; G89.29 Other chronic pain; I69.398 Other sequelae of cerebral infarction; H54.62 Unqualified visual loss, left eye, normal vision right eye; I25.10 Atherosclerotic heart disease of native coronary artery without angina pectoris; I25.2 Old myocardial infarction; I50.9 Heart failure, unspecified; N18.3 Chronic kidney disease, stage 3 (moderate); Z79.82 Long term (current) use of aspirin; Z79.899 Other long term (current) drug therapy; Z80.7 Family history of other malignant neoplasms of lymphoid, hematopoietic and related tissues; Z82.49 Family history of ischemic heart disease and other diseases of the circulatory system; Z90.710 Acquired absence of both cervix and uterus; Z95.1 Presence of aortocoronary bypass graft; Z99.81 Dependence on supplemental oxygen; Z79.891 Long term (current) use of opiate analgesic; Z79.51 Long term (current) use of inhaled steroids; Z88.0 Allergy status to penicillin; M51.26 Other intervertebral disc displacement, lumbar region
CPT/HCPCS: 31623; 31624; 31625; 36415; 71046; 71275; 80048; 80053; 82550; 82553; 83880; 84484; 85025; 85379; 85610; 85730; 87070; 87102; 87116; 87205; 87206; 87252; 87496; 87498; 87502; 87529; 87634; 87798; 88104; 88108; 88305; 88341; 88342; 93005; 93306; 94640; 94760; 96374; 96375; 99291

== ENCOUNTER → 2017-09-02 | Outpatient (CLI) | payer MEDICARE, BC ==
--- NOTE | 2017-09-02 13:33 | MR ---
EXAMINATION TYPE: MR brain wo/w con DATE OF EXAM: 09/02/2017 COMPARISON: NONE HISTORY: Headaches, Lung Ca TECHNIQUE: Multiplanar, multisequence images of the brain and brainstem is performed without and with IV contras t, utilizing 6.5 mL intravenous Gadavist . FINDINGS: Diffusion weighted images demonstrate no evidence of a recent infarct or other diffusion ab normality. There are scattered and confluent areas of hyperintensity on inversion recovery and T2-we ighted sequences within the periventricular, subcortical and deep white matter, cystic space present adjacent to the posterior horn of the left lateral ventricle likely represent some focal encephalomal acia measuring approximately 1 cm in size with some surrounding gliosis, smaller foci probable medull sendy infarct noted within the basal ganglia bilaterally. There is no extra-axial fluid collection. Th e ventricular system and cisternal spaces are normal in size and appearance. The brain volume is age appropriate, there is cortical atrophy. There are normal vascular flow voids. Midline structures demonstrate normal morphology. The craniocervical junction appears within normal limits. Post contrast images demonstrate some mild dural enhancement. The dural venous sinuses appea r patent. The visualized sinuses are clear and the globes are intact. IMPRESSION: Nonspecific white matter demyelination most likely represents chronic small vessel ischem ia, there is no abnormal brain enhancement to suggest metastatic disease. Some mild dural enhancement thought likely to be normal.
== END | disposition home or self-care (01) ==
LOC: RADMRIMAIN 09:38
PROVIDERS: ATTEND Internal Medicine Hematology & Oncology
DX: C34.92 Malignant neoplasm of unspecified part of left bronchus or lung (principal); G37.9 Demyelinating disease of central nervous system, unspecified
CPT/HCPCS: 70553; A9581

== ENCOUNTER → 2017-09-03 | Outpatient (CLI) | payer MEDICARE, BC ==
--- NOTE | 2017-09-04 11:42 | PE ---
Nuclear medicine PET/CT HISTORY: Lung carcinoma Patient received millicuries F-18 FDG intravenously in delayed scanning was performed from the skull base to the mid thighs. Localization and attenuation correction CT scan was performed. Exam is correl ated to CT chest 08/15/2017. Neck and chest: There is a left upper lobe lung mass present with associated hypermetabolic uptake, S UV 5.8. Prevascular nodes, aorticopulmonary window nodes, subcarinal nodes and retrocaval pretracheal adenopathy shows associated hypermetabolic uptake, SUV 10-14. There is some consolidation in the dis tribution of the lingula with some hypermetabolic uptake, SUV 7.7. Some strand-like densities are pre sent at the lung bases without associated hypermetabolic uptake. Overlying nondisplaced rib fractures noted at this level however. Abdomen pelvis: There is a left adrenal mass present measuring 3.5 cm superiorly and more inferiorly and additional nodular mass is present associated with the left adrenal gland measuring 2.3 cm with a ssociated hypermetabolic uptake, SUV is 7.6 and 6.6 respectively. Large area of hypermetabolic uptake is associated with the right lobe of the liver laterally, vague low-attenuation is present, area rhoda sures approximately 4.5 cm, SUV is 14. The body of the pancreas also shows a focal nodular area measu ring approximately 2.8 cm with associated hypermetabolic uptake, SUV is 6.3. More distally in the bod y an additional area of hypermetabolic uptake noted within the pancreas with less intensity. Aorta shows dense calcification, there is likely postprocedural change status post aortobifemoral byp ass graft. Probable physiologic uptake noted within the bowel. Left groin shows a focus of hypermetab olic uptake associated with a lymph node in the inguinal region without definite enlargement. Osseous structures: The proximal right femur shows a focus of hypermetabolic uptake without cortical destruction, SUV 7.8, the posterior right ischium also shows a focus of hypermetabolic uptake, SUV is 6.4. The anterior aspect of the ileum shows a focus of hypermetabolic uptake SUV 6.9, there is some questionable lytic lucency, sacrum and posterior right ilium show some hypermetabolic uptake, SUV is 6.6. Postop changes are noted to the lower lumbar spine, L4 shows some hypermetabolic uptake as does L3 and L2, SUV approximately 7-10. The left scapula shows hypermetabolic uptake at the glenoid level, SUV 5.3. IMPRESSION: Metastatic disease as described.
== END ==
LOC: RADPETMAIN 13:44
PROVIDERS: ATTEND Internal Medicine Hematology & Oncology
DX: C34.92 Malignant neoplasm of unspecified part of left bronchus or lung (principal); E27.8 Other specified disorders of adrenal gland
CPT/HCPCS: 78815; A9552